=== PATIENT | female | born 1960 | race Caucasian/White ===

== ENCOUNTER 2023-11-16 09:52 | Observation (INO) ==
--- NOTE | 2023-10-10 10:20 | PAT Medication Instructions ---
Medication Instructions Date of Service October 10, 2023 Home Medications Medication Instructions Recorded walker #1 ea 09/25/23 alendronate 70 mg tablet (Fosamax) 70 mg PO WK aspirin 81 mg capsule 81 mg PO QAM atorvastatin 40 mg tablet 40 mg PO QAM calcium 500 mg tablet 500 mg PO QAM cholecalciferol (vitamin D3) 25 mcg (1,000 unit) tablet (Vitamin D3) 25 mcg PO QAM citalopram 20 mg tablet 20 mg PO QAM coenzyme Q10 10 mg capsule 10 mg PO QAM diclofenac sodium 50 mg tablet,delayed release 50 mg PO BID PRN diltiazem HCl 180 mg tablet,extended release 24 hr 180 mg PO QAM ezetimibe 10 mg tablet 10 mg PO QAM glipizide 5 mg tablet 5 mg PO QAM lorazepam 0.5 mg tablet 0.5 mg PO DAILY PRN metformin 500 mg tablet 1,000 mg PO BID omeprazole 20 mg tablet,delayed release 20 mg PO QAM pyridoxine (vitamin B6) 100 mg tablet (Vitamin B-6) 100 mg PO QAM Continue as directed lorazepam 0.5 mg tablet 0.5 mg PO DAILY PRN(if needed) ASK your surgeon for instructions diclofenac sodium 50 mg tablet,delayed release 50 mg PO BID PRN ASK your prescriber and surgeon aspirin 81 mg capsule 81 mg PO QAM STOP taking 2 weeks before surgery (or as soon as possible if surgery is within 2 weeks) coenzyme Q10 10 mg capsule 10 mg PO QAM DO NOT take the morning of surgery alendronate 70 mg tablet (Fosamax) 70 mg PO WK calcium 500 mg tablet 500 mg PO QAM cholecalciferol (vitamin D3) 25 mcg (1,000 unit) tablet (Vitamin D3) 25 mcg PO QAM glipizide 5 mg tablet 5 mg PO QAM metformin 500 mg tablet 1,000 mg PO BID pyridoxine (vitamin B6) 100 mg tablet (Vitamin B-6) 100 mg PO QAM Take morning of surgery With a small sip of water, OTHERWISE NOTHING TO EAT OR DRINK AFTER MIDNIGHT: atorvastatin 40 mg tablet 40 mg PO QAM citalopram 20 mg tablet 20 mg PO QAM diltiazem HCl 180 mg tablet,extended release 24 hr 180 mg PO QAM ezetimibe 10 mg tablet 10 mg PO QAM omeprazole 20 mg tablet,delayed release 20 mg PO QAM Take evening before surgery metformin 500 mg tablet 1,000 mg PO BID Other Notes If you have any questions please call us at [phone] or [phone] or [phone] or [phone]
--- NOTE | 2023-10-18 09:09 | Anesthesiology Consultation ---
Date of Service October 18, 2023 Assessment & Plan (1) Encounter for pre-operative examination: - Check BSG AM DOS - Infectious disease screening: Per assessment on 10/18/23: No known recent infectious disease contacts or current infectious disease symptoms. - Outpatient joint assessment: Pt currently scheduled for inpatient pathway. If surgeon requests review for outpatient joint pathway, patient is not recommended candidate for outpatient joint program from anesthesia standpoint based on available information. - Awaiting upcoming PCP office visit (Dr. Sarita Middleton/HAILY Hamilton, appt 11/11). Patient otherwise acceptable risk for surgery. Chart Review Chart Review: Patient seen in Pre Admission Testing Teaching & Discussion Pre-Anesthesia Teaching/Discussion Notes: Instructed NPO after midnight before surgery,except medications with 15 cc of water. Medication instructions provided according to the PAT guidelines. History Surgery Operation Date: 11/16/23 08:50 Proposed Procedures p Right Total Knee Arthroplasty - Kavin Shanks MD Height/Weight Height: 5 ft 2 in Weight: 68.1 kg Allergies Allergy/AdvReac Type Severity Reaction Status Date / Time grapefruit Allergy Intermediate Hives Verified 10/03/23 13:16 peach Allergy Intermediate Hives Verified 10/03/23 13:16 strawberry Allergy Intermediate Mouth Sores Verified 10/03/23 13:16 erythromycin base AdvReac Intermediate Upset Verified 10/03/23 13:16 Stomach/Pain lactase [From Dairy Aid] AdvReac Intermediate Upset Verified 10/03/23 13:16 stomach Sulfa (Sulfonamide AdvReac Intermediate Flu-like Verified 10/03/23 13:16 Antibiotics) symptoms ampicillin AdvReac Mild Hives Verified 10/03/23 13:16 acetaminophen [From Percocet] AdvReac Nausea Verified 10/18/23 09:50 oxycodone [From Percocet] AdvReac Nausea Verified 10/18/23 09:50 Medications Home Medications Medication Instructions Recorded Confirmed Last Taken walker #1 ea 09/25/23 10/03/23 Unknown alendronate 70 mg tablet (Fosamax) 70 mg PO WK 10/03/23 10/03/23 Unknown aspirin 81 mg capsule 81 mg PO QAM 10/03/23 10/03/23 Unknown atorvastatin 40 mg tablet 40 mg PO QAM 10/03/23 10/03/23 Unknown calcium 500 mg tablet 500 mg PO QAM 10/03/23 10/03/23 Unknown cholecalciferol (vitamin D3) 25 25 mcg PO QAM 10/03/23 10/03/23 Unknown mcg (1,000 unit) tablet (Vitamin D3) citalopram 20 mg tablet 20 mg PO QAM 10/03/23 10/03/23 Unknown coenzyme Q10 10 mg capsule 10 mg PO QAM 10/03/23 10/03/23 Unknown diclofenac sodium 50 mg 50 mg PO BID PRN Pain 10/03/23 10/03/23 Unknown tablet,delayed release diltiazem HCl 180 mg 180 mg PO QAM 10/03/23 10/03/23 Unknown tablet,extended release 24 hr ezetimibe 10 mg tablet 10 mg PO QAM 10/03/23 10/03/23 Unknown glipizide 5 mg tablet 5 mg PO QAM 10/03/23 10/03/23 Unknown lorazepam 0.5 mg tablet 0.5 mg PO DAILY PRN Anxiety 10/03/23 10/03/23 Unknown metformin 500 mg tablet 1,000 mg PO BID 10/03/23 10/03/23 Unknown omeprazole 20 mg tablet,delayed 20 mg PO QAM 10/03/23 10/03/23 Unknown release pyridoxine (vitamin B6) 100 mg 100 mg PO QAM 10/03/23 10/03/23 Unknown tablet (Vitamin B-6) Past Medical History Medical History Acid reflux Anxiety Arthritis History of atrial fibrillation Per review of [facility] records, patient had a. fib episode 2015 > cardioverted to sinus rhythm. Cardio recommended Pradaxa 1 month. Discussion of remaining on AC vs off. CHADS 0. Cardio felt okay to discontinue Pradaxa after one month post cardioversion but recommended adding ASA daily to regimen. Hypercholesterolemia Sleep apnea CPAP (compliant) Thyroid nodule Under surveillance Type 2 diabetes mellitus Exercise / Class Metabolic Activity II 4-5 Yardwork/Stairs/Walk up hill (one FS: no CP, no SOB) Past Surgical History Surgical History History of cardioversion [facility] Approximately 2004 Hx of appendectomy Hx of colonoscopy Hx of left knee surgery torn meniscus PONV (postoperative nausea and vomiting) Past Anesthesia History No Hx of Anesthesia Complications and No Family Hx of Anesthesia Complications History of PONV History of PONV (Nausea) and Hx of Motion Sickness (Situational) Social History Smoking Status: Never smoker Do You Dip or Chew Tobacco: No Hx Alcohol Use: Yes Alcohol type: wine and hard liquor alcohol intake frequency: holidays/special occasions only Hx Substance Use: No substance use type: does not use Review of Systems Patient denies chest pain, shortness of breath, dyspnea on exertion, fever, chills, cough, wheezing, palpitations. Physical Exam Vital Signs BP 120/71 P 79 TEMP 97.8 SP02 97%RA RESP 18 Physical Full cervical extension range of motion. Full TMJ range of motion. TMD 2.5 finger breaths (small chin) Mallampati Score III Dentition: missing molars, upper front bridge Lungs: clear throughout to auscultation Cardiac: regular rate and rhythm, no murmurs noted Spine: normal Carotid arteries: negative bruit Extremities: no LE edema Lab Results Anesthesia Preop Results Results Anesthesia Widget: WBC 6.45 K/ul (4.8-10.8) 10/18/23 Hgb 11.7 g/dl (12.0-16.0) L 10/18/23 Hct 34.4 % (37.0-47.0) L 10/18/23 Plt 401 K/uL (130-400) H 10/18/23 Na 137 mmol/L (136-145) 10/18/23 K 3.9 mmol/L (3.5-5.1) 10/18/23 Cl 101 mmol/L (98-107) 10/18/23 CO2 27 mmol/L (21-32) 10/18/23 BUN 12 mg/dl (6-23) 10/18/23 Creat 0.66 mg/dl (0.6-1.2) 10/18/23 Glucose Level 106 mg/dl (70-99(Fasting)) H 10/18/23 PT 10.5 Seconds (9.0-12.0) 10/18/23 PTT 28 Seconds (21-31) 10/18/23 INR 1.0 (0.9-1.1) 10/18/23 HA1c 7.1 % (4.5-5.6) H 10/18/23 Blood Type O Positive 10/18/23 Antibody Screen NEGATIVE 10/18/23 Testing Electrocardiogram Date: 10/18/23 NSR at 77bpm. Low voltage QRS. Chest X-Ray Date: 10/18/23 FINDINGS: No lines and tubes are seen. The cardiomediastinal silhouette is normal. The lungs are clear. No evidence of pleural effusion or pneumothorax. IMPRESSION: No acute chest disease.
--- NOTE | 2023-11-10 11:31 | History & Physical Report ---
Date of Service November 10, 2023 Assessment & Plan (1) Right knee DJD: 63-year-old female with with advanced bilateral knee arthritis. She has failed conservative treatment. She is ready to proceed with knee replacement. The right knee is bothering more than the left. Plan we have taken the operating room and do a right knee replacement for the right cementless procedure explained in depth and she understands. Informed consent was obtained. She only knows to hold her metformin the morning of surgery. Bring the CPAP machine to the hospital. Will use aspirin for DVT prophylaxis. (2) Left knee DJD: History of Present Illness Chief Complaint: . Bilateral knee pain and discomfort right side worse than the left. Primary Care Provider: NO PCP . Patient is 63-year-old female from [facility] who presents for treatment of her knees. With a long history of bilateral knee pain discomfort describes gotten worse over time. She did have her left knee scope back in 2008. She has been through extensive conservative treatment provided at [facility]. This is become less successful over time. Pains become more disabling. Her walking tolerance is just a couple blocks. She used to walk 3 miles a day. She now like to proceed with knee replacement. Once again, the right side is worse than the left. Allergies Allergy/AdvReac Type Severity Reaction Status Date / Time grapefruit Allergy Intermediate Hives Verified 10/03/23 13:16 peach Allergy Intermediate Hives Verified 10/03/23 13:16 strawberry Allergy Intermediate Mouth Sores Verified 10/03/23 13:16 erythromycin base AdvReac Intermediate Upset Verified 10/03/23 13:16 Stomach/Pain lactase [From Dairy Aid] AdvReac Intermediate Upset Verified 10/03/23 13:16 stomach Sulfa (Sulfonamide AdvReac Intermediate Flu-like Verified 10/03/23 13:16 Antibiotics) symptoms ampicillin AdvReac Mild Hives Verified 10/03/23 13:16 acetaminophen [From Percocet] AdvReac Nausea Verified 10/18/23 09:50 oxycodone [From Percocet] AdvReac Nausea Verified 10/18/23 09:50 Home Medications Medication Instructions Recorded Confirmed Type walker #1 ea 09/25/23 10/03/23 Rx alendronate 70 mg tablet (Fosamax) 70 mg PO WK 10/03/23 10/03/23 History aspirin 81 mg capsule 81 mg PO QAM 10/03/23 10/03/23 History atorvastatin 40 mg tablet 40 mg PO QAM 10/03/23 10/03/23 History calcium 500 mg tablet 500 mg PO QAM 10/03/23 10/03/23 History cholecalciferol (vitamin D3) 25 25 mcg PO QAM 10/03/23 10/03/23 History mcg (1,000 unit) tablet (Vitamin D3) citalopram 20 mg tablet 20 mg PO QAM 10/03/23 10/03/23 History coenzyme Q10 10 mg capsule 10 mg PO QAM 10/03/23 10/03/23 History diclofenac sodium 50 mg 50 mg PO BID PRN Pain 10/03/23 10/03/23 History tablet,delayed release diltiazem HCl 180 mg 180 mg PO QAM 10/03/23 10/03/23 History tablet,extended release 24 hr ezetimibe 10 mg tablet 10 mg PO QAM 10/03/23 10/03/23 History glipizide 5 mg tablet 5 mg PO QAM 10/03/23 10/03/23 History lorazepam 0.5 mg tablet 0.5 mg PO DAILY PRN Anxiety 10/03/23 10/03/23 History metformin 500 mg tablet 1,000 mg PO BID 10/03/23 10/03/23 History omeprazole 20 mg tablet,delayed 20 mg PO QAM 10/03/23 10/03/23 History release pyridoxine (vitamin B6) 100 mg 100 mg PO QAM 10/03/23 10/03/23 History tablet (Vitamin B-6) Past Med/Surg History Problem List (Updated 11/10/23 @ 11:30 by Kavin Shanks MD) Left knee DJD Encounter for pre-operative examination Right knee DJD Medical History Arthritis Thyroid nodule Under surveillance Anxiety History of atrial fibrillation Per review of [facility] records, patient had a. fib episode 2015 > cardioverted to sinus rhythm. Cardio recommended Pradaxa 1 month. Discussion of remaining on AC vs off. CHADS 0. Cardio felt okay to discontinue Pradaxa after one month post cardioversion but recommended adding ASA daily to regimen. 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 Physical Exam . Physical examination was a pleasant middle-age female. Looks to be in pretty good health. Examination of both knees reveal patient ambulates independently. She got varus alignment to both knees. Examination of the right knee reveals tenderness over the medial joint line. Small knee effusion. Range of motion 10-1 15. No instability. No pain with hip motion. Examination of the left knee reveals similar varus deformity. Well-healed portal sites. Small knee effusion. Range of motion 5-1 20. No instability. Constitutional WD/WN, vitals as above Neck trachea midline, no thyromegaly Respiratory normal respiratory effort, lungs clear to auscultation Cardiovascular RRR, no murmur, no edema Gastrointestinal (Abdomen) normal bowel sounds, soft, nontender, no hepatosplenomegaly Results & Data Results & Data Laboratory Results . Diagnostic Findings . X-rays of both knees show advanced bilateral knee DJD. She is got complete loss of the medial joint space. Subchondral sclerosis. Osteophytes primarily medially. The right knee is slightly worse than the left. PG Care Time/CCT Total # of Minutes Spent Total Time Spent with Patient: Total time spent is greater than 50% in coordination of care (as documented) at patient's floor/unit and/or counseling patient: Coding Level of Care Code None Diagnoses Right knee DJD M17.11 Left knee DJD M17.12
[~2023-11-16 09:52] MED LIST: BUPIVACAINE 0.5 % 5 MG/1 ML PF 10ML VIAL ONE; EPINEPHrine INJ 1 MG/ML AMP ONE; LR 500ML BOLUS, THEN 15ML/HR IV SCH; ROPIVACAINE 0.5% 5 MG/ML 30 ML VIAL ONE
[2023-11-16] MEDS: LR 500ML BOLUS, THEN 15ML/HR IV SCH (10:37)
[2023-11-16] MEDS: LR 60ML/HR IV SCH (10:37)
[2023-11-16] MEDS: ACETAMINOPHEN 500 MG TAB PO SCH ×2 (10:42→20:29)
[2023-11-16] MEDS: FAMOTIDINE 20 MG TAB PO SCH (10:42)
[2023-11-16] MEDS: METOCLOPRAMIDE HCL 10 MG TABLET PO SCH (10:42)
[2023-11-16] MEDS: CeleBREX 200 MG CAP PO SCH (10:42)
--- NOTE | 2023-11-16 11:18 | History & Physical Bridge Note ---
Date of Service November 16, 2023 History & Physical Bridge Note I have examined the patient, reviewed the History & Physical and in the interval since the performance of the History & Physical I have noted the following changes of clinical significance: no changes noted
[2023-11-16] MEDS ORDERED: PROPOFOL IV EMULSION 10 MG/ML 20 ML VIAL IV ONE (12:50)
[2023-11-16] MEDS ORDERED: MIDAZOLAM HCL 1 MG/ML 2ML VIAL ONE (12:50)
[2023-11-16] MEDS: ceFAZolin 2000MG 2,000 MG/15 ML SYR IV SCH (14:09)
[2023-11-16] MEDS: ORTHO JOINT ANESTHETIC ONE (14:38)
[2023-11-16] MEDS: TRANEXAMIC ACID 1,000 MG **IV Intra-op IV SCH (14:43)
[2023-11-16] MEDS: ROPIV 0.5% 246mg, Ketorolac 30mg, EPINEPHrine 0.5mg in NSS INFIL SCH (14:59)
--- NOTE | 2023-11-16 15:38 | Operative Report ---
PG Post Operative Report Pre & Post Diagnosis Operation Date: 11/16/23 12:00 Pre-Op Diagnosis: Right Knee Degenerative Joint Disease Post-Op Diagnosis: Right Knee Degenerative Joint Disease I identified the patient and participated in the time-out.: Yes Procedure Operation Date: 11/16/23 12:00 Actual Procedures p Right Total Knee Arthroplasty(Right) - Kavin Shanks MD Surgeon Kavin Shanks MD Wheel Truer NADINE Heck Estimated Blood Loss 50 Findings Consistent with Post-Op Diagnosis Operative findings reveal advanced right knee medial compartment DJD. She had extensive grade 4 [id number] disease and eburnation of the entire medial compartment. The rest knee was pretty well-preserved. Osteophytes medially. Slight flexion contracture. Fixed varus deformity. Moderate-sized joint effusion. Specimens Right knee sent for pathology. Anesthesia Type Spinal MAC Complications none Disposition Accompanied Patient To Recovery: No Indications Patient is a 63-year-old female is had a long history of a gradual progressive right knee pain discomfort. She been through extensive conservative treatments became less successful over time. X-rays show advanced right knee medial compartment arthritis. She elected proceed with surgical management. Description of Procedure Operative implants consist of: 1 Biomet Vanguard size 65 right posterior stabilized femoral component. 2. Biomet size 67 tibial tray. 3. 12 mm posterior stabilized polyethylene insert. 4. 31 x 8 all poly patella. The patient was taken the op room, identified, placed on the operating table in the supine position. All conductors were appropriately padded. IV antibiotic 5 by anesthesia team. A spinal anesthetic and adductor canal block had provided holding area. A Ackerman catheter was placed in sterile fashion. Right Tetrick was then placed. The right lower extremity was then prepped and draped in usual sterile fashion. The right leg was elevated and exsanguinated with use of an Esmarch and turn was placed at 300 mmHg. An anterior approach to the right knee was then performed to longitudinal incision centered over the patella. Sharp dissection was carried through subcutaneous tissue down the extensor mechanism. A medial parapatellar arthrotomy incision was made. Some subperiosteal dissection was carried out medially to the fat pad resection. The patella tendon. Lateral patellofemoral ligament was released. Patella subluxated laterally and the knee was flexed. The osteophytes taken off distal femur. The ACL and PCL were then released from distal femur the tibia subluxated anteriorly. The external treatment LYMErix then placed on the anterior face the tibia and adjusted 14 mm medially. Proximal tibial cut was made remove about a millimeter bone from the medial side. Some osteophytes taken off medial and posterior medially. Tibia sized to a size 67. Attention drawn the femur. The distal femur then with a sharp drill. Intramedullary canal was suction. A right six 5 degree valgus cutting guide was placed. The distal femoral cutting block was pinned in place. Distal femoral cut was made take an additional 3 mm of bone off distal femur. The femur was then sized to a size 65. The AP cutting block was pinned parallel to the epicondylar axis which was 4 degrees of external rotation. The anterior cut, anterior chamfer, posterior cut, posterior chamfer cuts were made. The box cutting guide was placed and just slight lateral box cut was made. The knee was flexed. The remnants of the medial and lateral menisci were excised. The osteophytes were taken off the posterior aspect the femur. Trial femoral component was placed. The tibial tray was pinned Yasmin external rotation and the drill and stem punch used to create defect in proximal tibia for the tibial tray. Knee was then trialed and the 12 mm insert fit most appropriately. Attention drawn the patella. The patella was cleaned of all soft tissue. Patella thickness measured 22 mm in thickness was cut down to 13. Was sized to a size 31 patella. The lug holes were drilled for 31 patella. The lateral osteophytes removed. Patella button was placed. Knee was taken through range of motion patella tracked nicely with no thumbs test. Attention drawn toward placing the permanent components. All trial components were removed. Bone plug was placed in the distal femur limit blood loss. A double batch Palacos G cement was mixed. Biomet Vanguard size 65 right posterior stabilized femoral component, size 67 tibial tray, a 12 mm posterior Byce polyethylene insert, and a 31 x 8 all poly patella then cemented in place. The knee was brought out into full extension till cement hardened. Final cement check was then performed. Pericapsular tissues were injected with total 100 cc of Ortho mix. Patient did receive 1 g of tranexamic acid. The tourniquet was then let down for final tourniquet time 48 minutes. Hemostasis assured with electrocautery. Extensor Meclomen closed with combination 1 PDS suture #1 Vicryl suture in a [id number] fashion for the extensor Meclomen checked found to be intact. Subcutaneous tissue was then closed with 2 Dexon suture in a buried interrupted fashion and the skin was closed skin renata. Leg was then cleaned and dried and sterile dressing with Xeroform, 4 x 4's, sterile cast padding, Nathan bandage were applied. Patient then transferred to the recovery room in stable condition. Patient tolerated procedure well and there were no complications. Sen Heck, my physician head start assistant teacher, was present for the entire procedure. His assistance was essential and required for appropriate patient positioning, prepping and draping, surgical exposure, performing the technical details of the operation, placement the implants, closure of the wound, and placement of the sterile bandage. I attest to the content of the Intraoperative Record and any orders documented therein. Any exceptions are noted below.
[2023-11-16] MEDS ORDERED: fentaNYL citrate PF 100 MCG/2 ML VIAL IV PRN (15:44)
[2023-11-16] MEDS ORDERED: NALOXONE HCL 0.4 MG/1 ML VIAL/CARP IV PRN ×2 (15:44→17:06)
[2023-11-16] MEDS ORDERED: PROMETHAZINE HCL 6.25 MG in SODIUM CHLORIDE 0.9% 50 ML IV PRN (15:44)
[2023-11-16] MEDS ORDERED: ATROPINE SULFATE 0.1 MG/ML 10ML SYR IV PRN (15:44)
[2023-11-16] MEDS ORDERED: FLUMAZENIL 0.1 MG/1 ML 10 ML VIAL IV PRN (15:44)
[2023-11-16] MEDS ORDERED: ePHEDrine sulfate 50 MG/ML AMP IV PRN (15:44)
--- NOTE | 2023-11-16 15:47 | XRay Report ---
TWO VIEWS RIGHT KNEE CLINICAL HISTORY: Postoperative examination. FINDINGS: AP and crosstable lateral portable views of the right knee are obtained. A right knee arthr oplasty is in near anatomic alignment. There has been undersurface remodeling of the patella. No acut e fracture is seen. There are expected postoperative changes around the knee including skin clips, so ft tissue edema, and subcutaneous gas. IMPRESSION: Expected postoperative changes status post right knee arthroplasty. No acute fracture is seen. ACT 112: Negative or not required by law. Electronically signed by: Junior Vidales M.D. 11/16/2023 3:46 PM
[2023-11-16] MEDS: ONDANSETRON INJ 2 MG/ML 2 ML VIAL IV PRN (15:50)
--- NOTE | 2023-11-16 16:28 | Anesthesiology Progress Note ---
Date of Service November 16, 2023 Anesthesia Post Procedure Vital Signs Vital Signs: Temp Pulse Pulse Resp BP Pulse Ox O2 Del Method 11/16/23 16:20 82 14 99/57 L 96 Room Air 11/16/23 16:10 81 23 128/62 96 Room Air 11/16/23 16:00 82 20 124/57 L 93 Room Air 11/16/23 15:50 85 14 126/63 94 Room Air 11/16/23 15:40 86 16 128/66 95 Room Air 11/16/23 15:34 36.5 C 99 H 18 118/58 L 97 Room Air 11/16/23 10:28 36.6 C 87 18 132/64 96 Room Air, CPAP Pain Intensity Right Knee: Pain Intensity: 0 Transfer of Care Handoff Completed per policy Notes Mental Status: alert / awake / arousable Patient Amnestic to Procedure: Yes Nausea / Vomiting: adequately controlled Pain: adequately controlled Airway Patency, RR, SpO2: stable & adequate BP & HR: stable & adequate Hydration State: stable & adequate Neuraxial Anesthesia: was administered and sensory block is resolving Anesthetic Complications: no major complications apparent
--- OUTSIDE RECORDS SUMMARY | 2023-11-16 16:57 | External Medical Summary | Summary of Care ---
Author Name Unknown Organization [facility] Address [address] [place] [address] Phone [phone] Care Team Providers Care Quality Control Engineering Technician Name Role Phone Sarita Middleton MD Primary Care Provider [phone] Encounter Details Date Type Department Care Team (Late st Contact Info) Description 11/14/2023 Orders Only PATIENT PORTAL DO NOT DELETE THIS DEPT USED BY [place] [id number] Allergies Active Allergy Reactions Criticality Noted Date Comments Ampicillin 04/15/1998 rash-yrs ago Tilactase Abdominal pain 11/20/2014 Erythromycin 05/31/1999 nausea Food (See Comments) 08/09/2002 strawberries, peaches and grapefruit Sulfa Antibiotics 03/15/2000 vomiting documented as of this encounter (statuses as of 11/14/2023) Medications Medication Sig Dispensed Refills Start Date End Date Status VITAMIN B-6 100 MG PO TABSIndications:Menop ause one a day 30 5 12/20/2004 Active CALCIUM 500 MG PO CAPS one cap by mouth daily 30 5 12/22/2005 Active aspirin 81 MG chewable tablet Take 1 Tab by mouth daily. 100 Tab 3 02/21/2016 Active Coenzyme Q10 10 MG CapsuleIndications:Dy slipidemia, goal LDL below 100 Take 1 Cap by mouth daily. 30 Cap 5 06/18/2017 Active OneTouch Ultra 2 w/Device KitIndications:Diabet es mellitus without complication (HCC) Use as directed to test blood sugar 1 times daily. May substitute based on insurance preference. 1 Kit 11/11/2019 Active Vitamin D 25 MCG (1000 UT) Oral TabletIndications:Vit bui D deficiency Take by mouth 1 Tablet in the morning. 30 Tablet 11 10/20/2021 Active LORazepam 0.5 MG Oral Tablet (Ativan)Indications:A nxiety TAKE ONE (1) TABLET (0.5 MG) BY MOUTH AT BEDTIME NEEDED FOR ANXIETY. 30 Tablet 01/17/2022 Active OneTouch Delica Plus [id number]: Diabetes mellitus without complication (HCC) USE TO TEST BLOOD SUGAR ONCE DAILY 100 Each 3 07/13/2022 Active Glucose Blood In Vitro StripIndications:Diab etes mellitus without complication (HCC) USE TO TEST BLOOD SUGAR ONCE DAILY 100 Strip 3 07/13/2022 Active Olopatadine HCl 0.1 % Ophthalmic Solution (Pataday)Indications: Allergy, sequela Instill 1 Drop into both eyes in the morning and 1 Drop before bedtime. 5 mL 12 10/20/2022 Active CPAP every night at bedtime. Active Omeprazole 40 MG Oral Capsule Delayed Release (PriLOSEC) Take 1 Capsule by mouth in the morning. 90 Capsule 3 04/02/2023 Active Atorvastatin Calcium 40 MG Oral Tablet (Lipitor)Indications: Dyslipidemia, goal LDL below 100 TAKE 1 TABLET EVERY MORNING 90 Tablet 3 09/22/2023 Active Ezetimibe 10 MG Oral Tablet (Zetia) TAKE 1 TABLET EVERY MORNING 90 Tablet 3 10/18/2023 Active Alendronate Sodium 70 MG Oral Tablet (Fosamax)Indications: Age-related osteoporosis without current pathological fracture Take 1 Tablet by mouth once a week. 12 Tablet 1 11/12/2023 Active Citalopram Hydrobromide 20 MG Oral Tablet (CeleXA) Take 1 Tablet by mouth in the morning. 90 Tablet 1 11/12/2023 Active Diclofenac Sodium 50 MG Oral Tablet Delayed Release (Voltaren)Indications :Primary osteoarthritis of right knee,Generalized osteoarthritis of multiple sites Take 1 Tablet by mouth every morning. 90 Tablet 1 11/12/2023 Active dilTIAZem HCl ER Coated Beads 180 MG Oral Capsule Extended Release 24 Hour (Cardizem CD) Take 1 Capsule by mouth in the morning. 90 Capsule 1 11/12/2023 Active glipiZIDE ER 5 MG Oral Tablet Extended Release 24 Hour (Glucotrol XL)Indications:Diabet es mellitus without complication (HCC) Take 1 Tablet by mouth in the morning. 90 Tablet 1 11/12/2023 Active metFORMIN HCl ER 500 MG Oral Tablet Extended Release 24 Hour (Glucophage XR) Take 2 Tablets by mouth in the morning and 2 Tablets before bedtime. 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 PROJECT: #[id number] ATHLETIC SHOE DESIGNER: Dannie De Jesus , PhD CONTACTS: Dannie Serna, Floor Plan Adjuster at [phone] SUMMARY: Over one million people have now undergone "next-generation" DNA sequencing. As a result, our understanding of the relationships between DNA and disease has improved substantially, and it is now possible to review an individual's DNA to identify specific disease risk factors. One such disease is arrhythmogenic right ventricular cardiomyopathy (ARVC), which is a degenerative heart disease that leads to sudden cardiac . Previous research has identified DNA variants in specific genes that are associated with ARVC, but in reality, the frequency and consequences of ARVC-associated variants in a general population are unknown. Research is needed to develop this knowledge and help guide clinical management of these patients. The [facility] Biobank offers an opportunity to address this challenge. [facility] [place], [place] contains whole exome sequencing data for over 50,000 patients, and these data are being clinically reviewed for evidence of disease-causing variants. This study is building a registry of MyCode participants who are found to be carrying ARVC-associated DNA variants to identify what percentage of these individuals actually have the disease, and determine the best plan for their treatment. Diagnosis changed due to Research Module. Go to Snapshot for study details. Thyroid nodule 03/07/2016 Overview: by [place] Atrial fibrillation with rapid ventricular respo nse 01/05/2015 Atrial fibrillation 01/05/2015 MIREYA (obstructive sleep apnea) 05/18/2014 Right knee DJD 02/09/2011 Pes anserinus tendinitis 02/09/2011 ADVANCE DIRECTIVE INFORMATION 01/31/2011 Overview: No, Advance Directive brochure offered , patient declined. Family history of cardiovascular disease 011 Joint pain, knee 10/01/2008 Headache Overview: ICD-10 update of inactive term Dyslipidemia, goal LDL below 100 Knee joint pain documented as of this encounter (statuses as of 11/14/2023) Resolved Problems Problem Noted Date Diagnosed Date Resolved Date Paroxysmal atrial fibrillation 03/21/2022 10/19/2022 Paroxysmal atrial fibrillation 03/21/2022 10/19/2022 Paroxysmal atrial fibrillation 03/21/2022 10/19/2022 Age-related osteoporosis wit hout current pathological fracture 05/11/2020 03/29/2021 Overview: High risk- treatment started Type 2 diabetes mellitus with hyperglycemia 09/06/2018 03/03/2019 Hyperglycemia 09/22/2017 03/02/2019 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: 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 Arrhythmogenic Right Ventricular Cardiomyopathy (ARVC).by [facility] Examination following surgery 10/12/2008 09/20/2017 Knee joint pain 01/20/2011 Sleep apnea 09/21/2019 documented as of this encounter (statuses as of 11/14/2023) Immunizations Name Administration Dates Next Due COVID-19 mRNA, LNP-s, No Pre serve, 2-Dose Series (Shooger) 08/20/2021,12/13/2020,11/22/2020 PPD 02/19/2013, 1,12/28/2008,02/06 Pneumococcal Polysaccharide PPV23 (Pneumovax) 09/06/2018 Seasonal Influenza Vac., MDV , IM, 0.5 mL (Fluzone) 11/21/2013,11/15/2012,10/27/2011,01/20,01/12/2010,12/28/2008 Seasonal Influenza, High Dos e, Trivalent, PF, IM (Fluzone HD) 11/12/2023 Seasonal Influenza, PF, 6 M & above, IM , (FluLaval or Fluzone) 01/08/2023,10/19/2021,12/13/2020,11/09,12/04/2018,11/30/2017,11/16/2016 Seasonal Influenza, Quadriva lent, No Preserve, IM 11/11/2015,11/23/2014 TDAP (age 10 and older)(Boostrix) 09/06/2018 TDAP, Age 7 and older, IM (Adacel) 08/04/2008 documented as of this encounter Social History Tobacco Use Types Packs/Day Years Used Date Smoking Tobacco: Never Smokeless Tobacco: Never Alcohol Use Standard Drinks/Week Comments No 0 (1 standard drink = 0.6 oz pur e alcohol) PHQ-2 Answer Date Recorded PHQ Adult Total Score 0 11/12/2023 Hunger Vital Sign Answer Date Recorded Within the past 12 months, y ou worried that your food would run out before you got the money to buy more. Never true 03/23/19 24 Within the past 12 months, t he food you bought just didn't last and you didn't have money to get more. Never true 03/23/2023 Childcare Answer Date Recorded Do you feel overwhelmed with taking care of a child, family member or friend? No 03/23/2023 Does your family need help f inding childcare? (Household - for ages 0-17 years) Not on file 03/23/2023 Clothing Answer Date Recorded Have you been unable to get clothing when it was really needed? No 03/23/2023 Is your family able to get c lothes or diapers when needed? (Household - for ages 0-17 years) Not on file 03/23/2023 Personal Safety Answer Date Recorded Do you feel unsafe or have concerns for your saf ety? No 03/23/2023 Do you have concerns for you r family's safety? (Household - for ages 0-17 years) Not on file 03/23/2023 Utilities Answer Date Recorded Do you have trouble paying y our heating, water, or electric bill? No 03/23/2023 Is your family able to pay t he heat, water, or electric bill? (Household - for ages 0-17 years) Not on file 03/23/2023 Does your family have access to good internet? (Household - for ages 0-17 years) Not on file 03/23/2023 Employment Status Answer Date Recorded Are you unemployed or without regular income? No 03/23/2023 Does the household have a re gular source of income? (Household - for ages 0-17 years) Not on file 03/23/2023 Social Connections Answer Date Recorded How often do you feel lonely or isolated from th ose around you? Never 03/23/2023 Financial Resource Strain Answer Date R ecorded Do you have any trouble payi ng for your medications, or do you think you might in the future? No 03/23/2023 Does your family have troubl e paying for medicine? (Household - for ages 0-17 years) Not on file 03/23/2023 Transportation Needs Answer Date Record ed READ ONLY Do you have troubl e getting a ride to medical visits or work? Never True 03/23/2023 Does your family have a hard time getting a ride to doctors visits? (Household - for ages 0-17 years) Not on file 03/23/2023 Has lack of transportation k ept you from medical appointments, meetings, work, or from getting things needed for daily living? Check all that apply. (Adult - for ages 18 years and over) Not on file 03/23/2023 Do you (or your family) have trouble finding or paying for a ride (transportation)? (Household - for ages 0-17 years) Not on file 03/23/2023 Housing Stability Answer Date Recorded Do you currently live in a s helter or have no steady place to sleep at night? No 03/23/2023 READ ONLY Do you think you a re at risk of becoming homeless? No 03/23/2023 Does your family worry about paying for your home or becoming homeless? (Household - for ages 0-17 years) Not on file 0 03/23/2023 Are you homeless or worried that you might be in the future? (Adult - for ages 18 years and over) Not on file Are you (or your family) wayne eless or worried that you might be in the future? (Household - for ages 0-17 years) Not on file Food Insecurity Answer Date Recorded Do you need food for this week? No 03/23/2023 Are you able to get enough f ood for your family? (Household - for ages 0-17 years) Not on file 03/23/2023 Does your family need food t his week? (Household - for ages 0-17 years) Not on file 03/23/2023 Do you always have enough fo od for your family? (Household - for ages 0-17 years) Not on file 03/23/2023 Sex and Gender Information Value Date Recorded Sex Assigned at Female 09/06/2018 9:13 AM EDT Gender Identity Female 09/06/2018 9:13 AM EDT Sexual Orientation Straight 09/06/2018 9: 13 AM EDT Job Start Date Occupation Industry Not on file Not on file Not on file documented as of this encounter Functional Status Functional Status Response Date of Assess ment Are you deaf or do you have serious difficulty h earing? No 01/05/2015 Are you blind or do you have serious difficulty seeing, even when wearing glasses? No 01/05/2015 Do you have serious difficul ty walking or climbing stairs? (5 years old or older) No 01/05/2015 Do you have difficulty dress ing or bathing? (5 years old or older) No 01/05/2015 Because of a physical, menta l, or emotional condition, do you have difficulty doing errands alone such as visiting a doctor s office or shopping? (15 years old or older) No 01/06/20 15 Cognitive Status Response Date of Assessm ent Because of a physical, menta l, or emotional condition, do you have serious difficulty concentrating, remembering, or making decisions? (5 years old or older) No 01/05/2015 documented as of this encounter Plan of Treatment Upcoming Encounters Date Type Department Care Team (Late st Contact Info) Description 04/18/2024 10:00 AM EST Office Visit [facility] [place] [address] [facility] [place] [phone] Sarita Middleton MD [address] [facility] [place] [address] 10/23/2024 10:00 AM EDT Imaging Radiology, [place] [address] [facility] [place] [id number] 10/30/2024 9:20 AM EDT [facility] [address] [facility] [phone] Connie Brown MD [address] [place] [address] [place] [address] 12/29/2024 4:00 PM EST Office Visit [facility] [place] [address] [facility] [place] [address] Sarita Middleton MD [address] [facility] [place] [address] Scheduled Procedures Name Priority Associated Diagnoses Date/Ti me COLONOSCOPY FLEXIBLE PROXIMA L DIAGNOSTIC Recall Colon cancer screening Internal hemorrhoids Health Maintenance Due Date Last Done Comments Cologuard 2003 Sigmoidoscopy 2003 Zoster Vaccines (1 of 2) 2008 Fecal Occult Blood Test 02/27/2017 02/27/19 17, 02/26/2015, 02/19/2014, Additional history exists Pneumococcal Vaccine: 65+ Years (2 of 2 - PCV) 09/07/2019 09/06/2018 HbA1c 09/21/2023 03/23/2023, 09/2022, 03/22/2022, Additional history exists COVID-19 Vaccine ( season) 2023 08/20/2021, 12/13/2020, 11/22/2020 Albumin/Creatinine Ratio 03/23/2024 03/23/2023, 09/2022 Diabetic Eye Exam 03/23/2024 03/23/2023, , 11/05/2020, Additional history exists Diabetic Foot Exam 03/23/2024 03/23/2023, 0 03/22/2022, 03/30/2021, Additional history exists GFR 10/17/2024 10/18/2023, 0210/2023, 10/20/2022, Additional history exists Mammogram 10/31/2024 11/01/2023, 10/13, 09/15/2021, Additional history exists Depression Screening 11/11/2024 11/12/2023 DXA Scan 11/20/2024 11/20/2022, 05/11/2020 Lipid Panel 03/23/2028 03/23/2023, 09/2022, 03/22/2022, Additional history exists DTap/Tdap Vaccines (3 - Td or Tdap) 09/06/2028 09/06/2018, 08/04/2008, 04/03/2003 Colonoscopy 08/21/2029 08/22/2019, 08/12, 02/19/2009 Colorectal Cancer Screening 08/21/2029 Hepatitis B Vaccine Completed 10/02/2003, 05/02/2003, 04/03/2003 VITAMIN D LEVEL ONCE IN A LIFETIME-USE SMARTSET# [id number] Completed 10/19/2021 Cervical Cancer Screening Discontinued HPV/Co-Test Discontinued 03/22/2022 Pap Smear Discontinued 03/22/2022, 02/13, 02/28/2016, Additional history exists Influenza Vaccine (FLU shot) Completed 11/12/2023, 01/08/2023, 10/19/2021, Additional history exists HPV (Gardasil) Vaccine Aged Out No lo nger eligible based on patient's age to complete this topic MENINGOCOCCAL (MENACTRA/MENVEO) Aged Out No longer eligible based on patient's age to complete this topic documented as of this encounter Medical Devices Not on filedocumented as of this encounter Advance Directives * Full Code (Latest Code Status on File) Date Activated Date Inactivated Comments 01/05/2015 5:00 PM 01/06/2015 10:29 PM This orde r reflects the patients wishes and were consensually agreed upon. Question Answer Comments Discussion of Advance Directives occurred with: Patient Does the patient have a Living Will? No Does the patient have Health Care Power of Attor mayo? No Care Teams Quality Control Engineering Technician Relationship Specialty Start Date End Date Sarita Middleton MD [address] [facility] [address] [place] [phone] PCP - General Family Medicine 04/17/14 documented as of this encounter
--- OUTSIDE RECORDS SUMMARY | 2023-11-16 16:57 | External Medical Summary | Summary of Care ---
Author Name Unknown Organization [facility] Address [address] [place] [address] Phone [phone] Care Team Providers Care International Controller Name Role Phone Sarita Middleton MD Primary Care Provider [phone] Reason for Visit * Reason Comments Routine Exam No concernsPatient b rought in the report from her diabetic eye exam Encounter Details Date Type Department Care Team (Latest Contact Info) Description 11/12/2023 8:00 AM EDT Office Visit [facility] [address] [place] [address] Sarita Middleton MD [address] [place] [address] Diabetes mellitus without complication (HCC)*; Paroxysmal atrial fibrillation (HCC); Dyslipidemia, goal LDL below 100; MIREYA (obstructive sleep apnea); Gastroesophageal reflux disease without esophagitis; Arthralgia of knee, unspecified laterality; Age-related osteoporosis without current pathological fracture; Adjustment disorder with depressed mood; Vitamin D deficiency; Primary osteoarthritis of right knee; Generalized osteoarthritis of multiple sites; Risk and functional assessment; Need for influenza vaccination Allergies Active Allergy Reactions Criticality Noted Date Comments Ampicillin 04/15/1998 rash-yrs ago Tilactase Abdominal pain 11/20/2014 Erythromycin 05/31/1999 nausea Food (See Comments) 08/09/2002 strawberries, peaches and grapefruit Sulfa Antibiotics 03/15/2000 vomiting documented as of this encounter (statuses as of 11/12/2023) Medications Medication Sig Dispensed Refills Start Date End Date Status VITAMIN B-6 100 MG PO TABSIndications:Me nopause one a day 30 5 5 Active CALCIUM 500 MG PO CAPS one cap by mouth daily 30 5 6 Active aspirin 81 MG chewable tablet Take 1 Tab by mouth daily. 100 Tab 3 7 Active Coenzyme Q10 10 MG CapsuleIndications :Dyslipidemia, goal LDL below 100 Take 1 Cap by mouth daily. 30 Cap 5 8 Active OneTouch Ultra 2 w/Device KitIndications:Marline betes mellitus without complication (HCC) Use as directed to test blood sugar 1 times daily. May substitute based on insurance preference. 1 Kit 0 Active Vitamin D 25 MCG (1000 UT) Oral TabletIndications: Vitamin D deficiency Take by mouth 1 Tablet in the morning. 30 Tablet 11 2 Active LORazepam 0.5 MG Oral Tablet (Ativan)Indication s:Anxiety TAKE ONE (1) TABLET (0.5 MG) BY MOUTH AT BEDTIME NEEDED FOR ANXIETY. 30 Tablet 2 Active OneTouch Delica Plus [id number] ns:Diabetes mellitus without complication (HCC) USE TO TEST BLOOD SUGAR ONCE DAILY 100 Each 3 3 Active Glucose Blood In Vitro StripIndications:D iabetes mellitus without complication (HCC) USE TO TEST BLOOD SUGAR ONCE DAILY 100 Strip 3 3 Active Olopatadine HCl 0.1 % Ophthalmic Solution (Pataday)Indicatio ns:Allergy, sequela Instill 1 Drop into both eyes in the morning and 1 Drop before bedtime. 5 mL 12 3 Active CPAP every night at bedtime. Active Omeprazole 40 MG Oral Capsule Delayed Release (PriLOSEC) Take 1 Capsule by mouth in the morning. 90 Capsule 3 4 Active Atorvastatin Calcium 40 MG Oral Tablet (Lipitor)Indicatio ns:Dyslipidemia, goal LDL below 100 TAKE 1 TABLET EVERY MORNING 90 Tablet 3 4 Active Ezetimibe 10 MG Oral Tablet (Zetia) TAKE 1 TABLET EVERY MORNING 90 Tablet 3 4 Active Alendronate Sodium 70 MG Oral Tablet (Fosamax)Indicatio ns:Age-related osteoporosis without current pathological fracture Take 1 Tablet by mouth once a week. 12 Tablet 1 4 Active Citalopram Hydrobromide 20 MG Oral Tablet (CeleXA) Take 1 Tablet by mouth in the morning. 90 Tablet 1 4 Active Diclofenac Sodium 50 MG Oral Tablet Delayed Release (Voltaren)Indicati ons:Primary osteoarthritis of right knee,Generalized osteoarthritis of multiple sites Take 1 Tablet by mouth every morning. 90 Tablet 1 4 Active dilTIAZem HCl ER Coated Beads 180 MG Oral Capsule Extended Release 24 Hour (Cardizem CD) Take 1 Capsule by mouth in the morning. 90 Capsule 1 4 Active glipiZIDE ER 5 MG Oral Tablet Extended Release 24 Hour (Glucotrol XL)Indications:Marline betes mellitus without complication (HCC) Take 1 Tablet by mouth in the morning. 90 Tablet 1 4 Active metFORMIN HCl ER 500 MG Oral Tablet Extended Release 24 Hour (Glucophage XR) Take 2 Tablets by mouth in the morning and 2 Tablets before bedtime. 360 Tablet 1 4 Active Alendronate Sodium 70 MG Oral Tablet (Fosamax)Indicatio ns:Age-related osteoporosis without current pathological fracture Take 1 Tablet by mouth once a week. 12 Tablet 1 4 11/12/19 24 Discontinued(Re fill) Citalopram Hydrobromide 20 MG Oral Tablet (CeleXA) Take 1 Tablet by mouth in the morning. 90 Tablet 1 4 11/12/19 24 Discontinued(Re fill) dilTIAZem HCl ER Coated Beads 180 MG Oral Capsule Extended Release 24 Hour (Cardizem CD) Take 1 Capsule by mouth in the morning. 90 Capsule 1 4 11/12/19 24 Discontinued(Re fill) Diclofenac Sodium 50 MG Oral Tablet Delayed Release (Voltaren)Indicati ons:Primary osteoarthritis of right knee,Generalized osteoarthritis of multiple sites Take 1 Tablet by mouth every morning. 90 Tablet 1 4 11/12/19 24 Discontinued(Re fill) glipiZIDE ER 5 MG Oral Tablet Extended Release 24 Hour (Glucotrol XL)Indications:Marline betes mellitus without complication (HCC) Take 1 Tablet by mouth in the morning. 90 Tablet 1 4 11/12/19 24 Discontinued(Re fill) metFORMIN HCl ER 500 MG Oral Tablet Extended Release 24 Hour (Glucophage XR) 2 tabs by mouth twice a day. 360 Tablet 1 4 11/12/19 24 Discontinued(Re fill) oxyCODONE-Acetamin ophen 5-325 MG Oral Tablet (Percocet) Take 1 Tablet by mouth every 4 hours as needed for Pain, Severe. 6 Tablet 4 11/12/19 24 Discontinued(Me dication List Clean Up) oxyCODONE-Acetamin ophen 5-325 MG Oral Tablet (Percocet) Take 1 Tablet by mouth every 4 hours as needed for Pain, Severe. 12 Tablet 4 11/11/19 24 Discontinued(Me dication List Clean Up) Ondansetron 4 MG Oral Tablet Disintegrating (Zofran) Place 1 Tablet on tongue every 8 hours as needed for Nausea. dissolve on tongue. 2 Tablet 4 11/11/19 24 Discontinued(Me dication List Clean Up) Ondansetron 4 MG Oral Tablet Disintegrating (Zofran) Place 1 Tablet on tongue every 8 hours as needed for Nausea. dissolve on tongue. 20 Tablet 4 11/11/19 24 Discontinued(Me dication List Clean Up) Alendronate Sodium 70 MG Oral Tablet (Fosamax)Indicatio ns:Age-related osteoporosis without current pathological fracture Take 1 Tablet by mouth once a week. 12 Tablet 1 4 11/12/19 24 Discontinued Citalopram Hydrobromide 20 MG Oral Tablet (CeleXA) Take 1 Tablet by mouth in the morning. 90 Tablet 1 4 11/12/19 24 Discontinued Diclofenac Sodium 50 MG Oral Tablet Delayed Release (Voltaren)Indicati ons:Primary osteoarthritis of right knee,Generalized osteoarthritis of multiple sites Take 1 Tablet by mouth every morning. 90 Tablet 1 4 11/12/19 24 Discontinued dilTIAZem HCl ER Coated Beads 180 MG Oral Capsule Extended Release 24 Hour (Cardizem CD) Take 1 Capsule by mouth in the morning. 90 Capsule 1 4 11/12/19 24 Discontinued glipiZIDE ER 5 MG Oral Tablet Extended Release 24 Hour (Glucotrol XL)Indications:Marline betes mellitus without complication (HCC) Take 1 Tablet by mouth in the morning. 90 Tablet 1 4 11/12/19 24 Discontinued metFORMIN HCl ER 500 MG Oral Tablet Extended Release 24 Hour (Glucophage XR) Take 2 Tablets by mouth in the morning and 2 Tablets before bedtime. 360 Tablet 1 4 11/12/19 24 Discontinued documented as of this encounter (statuses as of 11/12/2023) Active Problems Problem Noted Date Diagnosed Date [...] clinical research program 09/03/2017 Overview: [facility] Research Study*[id number]. PROJECT: #[id number] INSULATION SPRAYER: Dannie De Jesus , PhD CONTACTS: Dannie Serna, Mini Lab Operator at [phone] SUMMARY: Over one million people have now [...] guide clinical management of these patients. [facility] offers an opportunity to address this challenge. [facility] contains whole exome sequencing data for over [...] as of this encounter (statuses as of 11/12/2023) Resolved Problems Problem Noted Date Diagnosed Date [...] risk for Arrhythmogenic Right Ventricular Cardiomyopathy (ARVC).by [facility] Examination following surgery 10/12/2008 09/20/2017 Knee joint pain 01/20/2011 Sleep apnea 09/21/2019 documented as of this encounter (statuses as of 11/12/2023) Immunizations Name Administration Dates Next Due COVID-19 mRNA, LNP-s, No Pre serve, 2-Dose Series (Wattvision) 08/20/2021,12/13/2020,11/22/2020 PPD 02/19/2013, 1,12/28/2008,02/06 Pneumococcal Polysaccharide PPV23 (Pneumovax) 09/06/2018 Seasonal Influenza, High Dos e, Trivalent, PF, IM (Fluzone HD) 11/12/2023 Seasonal Influenza, PF, 6 M & above, IM , (FluLaval or Fluzone) 01/08/2023,10/19/2021,12/13/2020,11/09,12/04/2018,11/30/2017,11/16/2016 Seasonal Influenza, Quadriva lent, No Preserve, IM 11/11/2015,11/23/2014 Seasonal Influenza, Trivalen t, (IIV3), with Preserv, (Fluzone) 11/21/2013,11/15/2012,10/27/2011,01/20,01/12/2010,12/28/2008 TDAP (age 10 and older)(Boostrix) 09/06/2018 TDAP, Age 7 and older, IM (Adacel) 08/04/2008 documented as of this encounter Social History Tobacco Use Types Packs/Day Years Used Date Smoking Tobacco: Never Smokeless Tobacco: Never Alcohol Use Standard Drinks/Week Comments No 0 (1 standard drink = 0.6 oz pur e alcohol) PHQ-2 Answer Date Recorded PHQ Adult Total Score 0 10/20/2022 Hunger Vital Sign Answer Date Recorded Within [...] on file documented as of this encounter Last Filed Vital Signs Vital Sign Reading Time Taken Comments Blood Pressure 126/74 11/12/2023 8:11 AM EDT Pulse 88 11/12/2023 8:11 AM EDT Temperature 36.9 C (98.4 F) 11/12/2023 8:11 AM ED T Respiratory Rate - - Oxygen Saturation 98% 11/12/2023 8:11 AM EDT Inhaled Oxygen Concentration - - Weight 66.5 kg (146 lb 8 oz) 11/12/2023 8:11 AM EDT Height 157.5 cm (5' 2.01") 11/12/2023 8:11 AM ED T Body Mass Index 26.79 11/12/2023 8:11 AM EDT documented in this encounter Functional Status Functional Status Response [...] No 01/05/2015 documented as of this encounter Patient Instructions * Patient Instructions* Aleja Israel LPN - 11/12/2023 8:10 AM EDT Patient Instructions - Fall Prevention (This education is for all patients over 65 regardless of symptoms) Remember to take your current medications as prescribed. In order to prevent falls, you are encouraged to: Exercise Utilize assistive/adaptive devices Avoid multifocal lenses when walking Avoid hazards in home Maintain a regular toileting schedule Any questions please contact our office. Preventing Falls in the Home (This education is for all patients over 65 regardless of symptoms) As you get older, falls are more likely. Thats because your reaction time slows. Your muscles and joints may also get stiffer, making them less flexible. Illness, medications, and vision changes can also affect your balance. A fall could leave you unable to live on your own. To make your home safer, follow these tips: Floors Put nonskid pads under area rugs Remove throw rugs Replace worn floor coverings Tack carpets firmly to each step on carpeted stairs. Put nonskid strips on the edges of uncarpeted stairs Keep floors and stairs free of clutter and cords Arrange furniture so there are clear pathways Clean up any spills right away Bathrooms Install grab bars in the tub or shower Apply nonskid strips or put a nonskid rubber mat in the tub or shower Sit on a bath chair to bathe Use bathmats with nonskid backing Lighting Keep a flashlight in each room Put a nightlight along the pathway between the bedroom and the bathroom Alex Patient Education Copyright 2009 - 2010 Alex except where otherwise noted Preventing Falls: Exercises to Improve Balance, Flexibility, Strength, and Staying Power (This education is for all patients over 65 regardless of symptoms) Certain types of exercises may help make you less likely to fall. Try the ones below. Or do other exercises that your healthcare provider suggests. Depending on your health, you may need to start slowly. Dont let that stop you. Even small amounts of exercise can help you. Be sure to talk to yourhealthcare provider before starting any exercise program. Improve Balance Many types of exercise can help improve balance. Keaton chi and yoga are good examples. Heres another one to try. You can do it anytime and almost anywhere. Stand next to a counter or solid support. Push yourself up onto your tiptoes. Hold for 5 seconds. If you start to lose your balance, hold on to the counter. Rest and repeat 5 times. Work up to holding for 20 to 30 seconds, if you can. Increase Flexibility Being more flexible makes it easier for you to move around safely. Try exercises like the seated hamstring stretch. Sit in a chair and put one foot on a stool. Straighten your leg and reach with both hands down either side of your leg. Reach as far down your leg as you can. Hold for about 20 seconds. Go back to the starting position. Then repeat 5 times. Switch legs. Build Strength Resistance exercises help build strength. You can do them without equipment. Or you can use weights, elastic bands, or special machines. One such exercise is called the biceps curl. You can hold a 1 pound weight or even a can of soup. Do this exercise at least 3 times a week. Strive for everyday. Sit up straight in a chair. Keep your elbow close to your body and your wrist straight. Bend your arm, moving your hand up to your shoulder. Then slowly lower your arm. Repeat 5 times. Switch to the other arm. Build Your Staying Power Aerobic exercises make your heart and lungs stronger so you can keep moving longer. Walking and swimming are two of the best types of exercises you can do. Using a stationary bike is great, too. Find an aerobic exercise that you enjoy. Start slowly and build up. Even 5 minutes is helpful. Aimfor a goal of 30 minutes, at least 3 times a week. You dont have to do 30 minutes in one session. Break it up and walk a little throughout the day. More Helpful Tips Start easy. Slowly work up to doing more. Talk with your healthcare provider about the best exercises for you. Call senior centers or health clubs about exercise programs. If needed, have a family member watch you walk every so often to check your stability. Exercise with a friend. Choose an activity you both enjoy. Try exercises that you can do anytime, anywhere. Here are two examples. Have someone with you when you first try these: Practice walking by placing one foot right in front of the other. Stand up and sit down 10 times. Repeat this throughout the day. Your Survival Patient Education Copyright 2008 Your Survival except where otherwise noted. Preventing Falls: Moving Safely Using a Cane or Walker (This education is for all patients over 65 regardless of symptoms) Keep the cane away from your feet so you dont trip. A walking aid, such as a cane or walker, can help you stay more independent and avoid falls. Remember to keep your walking aid within easy reach when youre in a chair or in bed. And learn how to use it safely so you dont injure yourself. Using a Cane If you have a stronger side, hold the cane on that side. Get your balance. Move the cane and your weaker leg forward. Support your weight on both the cane and your weaker side. Step with your stronger leg. Start again from step 1. If youre using a folding walker, be sure you know how to lock it open. Check that its locked open before each use. Using a Walker Roll the walker (or lift it, if youre using one without wheels) forward about 12 inches. Step forward with your weaker leg first. Use the walker to help keep your balance. Bring your other foot forward to the center of the walker. Start again from step 1. Helpful Tips Check with your healthcare provider about the right walking aid to use. Ask about a walker with a seat attached. Check the tips of your cane or walker to make sure they have nonskid covers. Move slowly from room to room. Dont elliott. Sit down to get dressed. Use a ghulam pack or backpack to keep your hands free. Get help for jobs that mean climbing, even on a stepstool. Your Survival Patient Education Copyright 2008 Your Survival except where otherwise noted. Urinary Incontinence Plan of Care Documentation: (This education is for all patients over 65 regardless of symptoms) Current medications reconciled. Patient encouraged to: Practice kegal exercises Provide education materials Use the restroom every 2 hours throughout the day Limit caffeine, alcohol, spicy foods and acidic foods Keep a bladder diary Limit fluid intake 3-4 hours before bed Lose weight Prevent constipation Take fluid pills at a time when you can get to the bathroom quickly Control sugar better if diabetic Limit fluid intake to 60 oz. per day Wear support stockings (TEDs)if you have edema Aleja Israel LPN 11/12/2023 Kegel Exercises Kegel exercises dont require special clothing or equipment. Theyre easy to learn and simple to do. And if you do them right, no one can tell youre doing them, so they can be done almost anywhere. Your doctor, nurse, or physical therapist can answer any questions you have and help you get started. A Weak Pelvic Floor The pelvic floor muscles may weaken due to aging, and vaginal childbirth, injury, surgery, chronic cough, or lack of exercise. If the pelvic floor is weak, your bladder and other pelvic organs may sag out of place. The urethra may also open too easily and allow urine to leak out. Kegel exercises can help you strengthen your pelvic floor muscles so they can better support the pelvic organs and control urine flow. How Kegel Exercises Are Done Try each of the Kegel exercises described below. When youre doing them, try not to move your leg, buttock, or stomach muscles. While youre urinating, try to stop the flow of urine. Start and stop it as often as you can. Contract as if you were stopping your urine stream, but do it when youre not urinating. Tighten your rectum as if trying not to pass gas. Contract your anus, but dont move your buttocks. Helpful Hints Do your Kegels as often as you can. The more you do them, the faster youll feel the results. Pick an activity you do often as a reminder. For instance, do your Kegels every time you sit down. Tighten your pelvic floor before you sneeze, get up from a chair, cough, laugh, or lift. This protects your pelvic floor from injury and can help prevent urine leakage. Try to hold each Kegel for a slow count to five. You probably wont be able to hold them for thatlong at first, but keep practicing. It will get easier as your pelvic floor gets stronger. Eventually, special weights that you place in your vagina may be recommended to help make your Kegels even more effective. Alex Patient Education Copyright 2008 - 2010 Alex except where otherwise noted. Here are some helpful tips for your urinary incontinence: (This education is for all patients over 65 regardless of symptoms) Practice Kegel exercises Use the restroom every 2 hours throughout the day Limit caffeine, alcohol, spicy foods, and acidic foods Keep a bladder diary Limit fluid intake 3-4 hours before bed Lose weight Prevent constipation Take fluid pills at a time when can get to the bathroom quickly Control sugar better if diabetic Limit fluid intake to 60 oz. per day Any questions, please feel free to contact our office. documented in this encounter Progress Notes * Sarita Middleton MD - 11/11/2023 7:54 AM EDT Bridgette Caraballo is a 63 year old female who present for a routine exam HPI: Nursing Notes: Aleja Israel LPN 11/12/23 0813 Signed Chief Complaint Patient presents with Routine Exam No concerns Patient brought in the report from her diabetic eye exam Agrees to Flu shot if it doesn't interfere with her knee replacement on Wednesday 11/15 As above blood pressure stable Wt Readings from Last 3 Encounters: 11/12/23 66.5 kg (146 lb 8 oz) 11/01/23 67.1 kg (148 lb) 05/18/23 69.9 kg (154 lb 3.2 oz) Cutting back on soda and snacks For R TKR and with Dr Shanks on 11/15 To [facility] but her orthopedic doctor left and she decided to pursue someone else and [facility] 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 100 Tab 3 Coenzyme Q10 10 MG Capsule Take 1 Cap by mouth daily. 30 Cap 5 OneTouch Ultra 2 w/Device Kit Use as directed to test blood sugar 1 times daily. May substitute based on insurance preference. 1 Kit 0 Vitamin D 25 MCG (1000 UT) Oral Tablet Take by mouth 1 Tablet in the morning. 30 Tablet 11 LORazepam 0.5 MG Oral Tablet (Ativan) TAKE ONE (1) TABLET (0.5 MG) BY MOUTH AT BEDTIME NEEDED FOR ANXIETY. 30 Tablet 0 OneTouch Delica Plus [id number] USE TO TEST BLOOD SUGAR ONCE DAILY 100 Each 3 Glucose Blood In Vitro Strip USE TO TEST BLOOD SUGAR ONCE DAILY 100 Strip 3 Olopatadine HCl 0.1 % Ophthalmic Solution (Pataday) Instill 1 Drop into both eyes in the morning and 1 Drop before bedtime. 5 mL 12 CPAP every night at bedtime. Alendronate Sodium 70 MG Oral Tablet (Fosamax) Take 1 Tablet by mouth once a week. 12 Tablet 1 Citalopram Hydrobromide 20 MG Oral Tablet (CeleXA) Take 1 Tablet by mouth in the morning. 90 Tablet1 dilTIAZem HCl ER Coated Beads 180 MG Oral Capsule Extended Release 24 Hour (Cardizem CD) Take 1 Capsule by mouth in the morning. 90 Capsule 1 Diclofenac Sodium 50 MG Oral Tablet Delayed Release (Voltaren) Take 1 Tablet by mouth every morning. 90 Tablet 1 glipiZIDE ER 5 MG Oral Tablet Extended Release 24 Hour (Glucotrol XL) Take 1 Tablet by mouth in themorning. 90 Tablet 1 metFORMIN HCl ER 500 MG Oral Tablet Extended Release 24 Hour (Glucophage XR) 2 tabs by mouth twice a day. 360 Tablet 1 Omeprazole 40 MG Oral Capsule Delayed Release (PriLOSEC) Take 1 Capsule by mouth in the morning. 90Capsule 3 Atorvastatin Calcium 40 MG Oral Tablet (Lipitor) TAKE 1 TABLET EVERY MORNING 90 Tablet 3 Ezetimibe 10 MG Oral Tablet (Zetia) TAKE 1 TABLET EVERY MORNING 90 Tablet 3 No current facility-administered medications for this visit. 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 Well-defined wider than tall with punctate echogenic foci. This measures approximately 13 mm x 7 mm x 8 mm. Previously reported on 10/24/2022 to measure 13 mm x 7.5 mm x 9 mm. By ultrasound characteristics this is felt TR 4. TI-RADS a guidelines would suggest follow-u pUSsurveillance within a 12 mo Type 2 diabetes mellitus with hyperglycemia (HCC) 09/06/2018 Past Surgical History: Procedure Laterality Date COLONOSCOPY 02/19/2009 divertic COLONOSCOPY 08/22/2019 Diverticulosis in the sigmoid colon. Repeat 10 years COLONOSCOPY, DIAGNOSTIC (RECTUM) 08/22/2019 COLONOSCOPY FLEXIBLE PROXIMAL DIAGNOSTIC performed by Nicole Osman MD at ENDOSCOPY [facility] DEXA SCAN/BONE MINERAL AXIAL 11/28/2022 1. The present treatment with Fosamax/Alendronate has significantly increased bone mineral density in this patient and should be continued. 2. A repeat study should be considered in 2 years, while ontherapy ECHO (2-D COMPLETE) 12/2014 EF 55%, mild MR, small PFO EGD, FLEXIBLE, W/BIOPSY 08/[address] Hemanth Guerra in [place] HE[facility] ELECTROCONVERSION, EXTERNAL N/A 01/06/2015 DC [facility] performed by oMy Abdalla MD at [facility] [place] ARTHROSCOPY/MENISCECTOMY 10/02/2008 ARTHROSCOPY KNEE MEDIAL OR LATERAL MENISCECTOMY performed by DEISI STILL at [facility] LIGATE/CUT OVIDUCT(S) 1980 MRI KNEE WO CONTRAST 09/14/2008 vertical tear of left medial meniscus SLEEP STUDY, W/O CPAP 02/2011 Review of patient's allergies indicates: Allergen Reactions Ampicillin rash-yrs ago Dairy Aid [Tilactase] Abdominal pain Erythromycin nausea Food (See Comments) strawberries, peaches and grapefruit Sulfa Antibiotics vomiting Social History Tobacco Use Smoking status: Never Smokeless tobacco: Never Substance Use Topics Alcohol use: No Vaping/E-Cigarette Use Vaping/E-Cigarette Use Never User Vaping/E-Cigarette Substances Vaping/E-Cigarette Devices Family History Problem Relation Name Age of Onset Other (ALZHEIMER'S D) Mother DX'D AGE 67 Alcohol and Other Disorders Associated Father Stroke Father 58 Dementia Sister Catrina at 67 Stroke Brother Bala 2 strokes age 61 Other (a fib) Brother Bala mat cousin age 64 Heart Disorder Aunt (Unspecified) Mat aunt of blood clot age 34 , was on bcp Heart Disorder Aunt (Unspecified) mat aunt age 54 of heart transplant Heart Disorder Aunt (Unspecified) mat aunt 65 of heart problems PE: WD WN in No apparent distress VS BP 126/74 (BP Site: Right Arm, BP Position: Sitting, BP Cuff Size: Regular) | Pulse 88 | Temp 36.9 C (98.4 F) (Tympanic) | Ht 1.575 m (5' 2.01") | Wt 66.5 kg (146 lb 8 oz) | LMP 08/26/2010 | SpO2 98% | BMI 26.79 kg/m | BSA 1.71 m LMP 08/26/2010 HEENT: NC/AT EOMI PERRLA+glasses NOSE: no discharge MUCOUS MBS: no lesions and moist DENTITION: good Neck: supple and no adenopathy Thyroid: symmetrically enlarged non tender Lungs: Lungs clear to auscultation Heart: regular rate and rhythm Abdomen: normal Skin: no rash and no bruising EXT: no edema +DJD changes of knees ASSESSMENT/PLAN: Diabetes mellitus without complication (HCC) (Primary) - HEMOGLOBIN A1C; Future; Expected date: 11/11/2023 - LIPID PANEL WITH DIRECT LDL IF TG IS HIGH; Future; Expected date: 11/11/2023 Hemoglobin AIC Results: Lab Results Component Value Date/Time HEMOGLOBIN A1C - [facility] 6.7 (H) 03/23/2023 08:56 AM HEMOGLOBIN A1C - [facility] 7.2 (H) 10/20/2022 08:31 AM HEMOGLOBIN A1C - [facility] 6.8 (H) 03/22/2022 09:39 AM HEMOGLOBIN A1C - [facility] 7.7 (H) 11/10/2019 08:45 AM HEMOGLOBIN A1C - [facility] 7.1 (H) 06/27/2019 02:07 PM HEMOGLOBIN A1C - [facility] 7.6 (H) 03/03/2019 08:54 AM Paroxysmal atrial fibrillation (HCC) On diltiazem Dyslipidemia, goal LDL below 100 - HEMOGLOBIN A1C; Future; Expected date: 11/11/2023 - LIPID PANEL WITH DIRECT LDL IF TG IS HIGH; Future; Expected date: 11/11/2023 On statin and Zetia MIREYA (obstructive sleep apnea) On CPAP Date & Time 10/30/2024 9:20 AM Provider Connie Brown MD Department Sleep Disorders Medicine [facility] Gastroesophageal reflux disease without esophagitis On PPI Arthralgia of knee, unspecified laterality Following with Dr Shanks Age-related osteoporosis without current pathological fracture On alendronate Check Vit D level Adjustment disorder with depressed mood On citalopram -congratulated on her weight loss For R TKR with Dr Shanks 11/16/23 at [facility] Offer immunizations=flu shot today Follow-up: Return has 04/18/24 appt and make one for a yr and prn. | Check-out note: 04/18/2024 Sarita Middleton MD documented in this encounter Nursing Notes * Aleja sIrael LPN - 11/12/2023 8:43 AM EDT Pre-Administration Time Out Procedure Performed: Yes Patient Identified (Ask Name/Date of ): Yes Does the patient have a fever greater than 101 degrees today? No Patient allergic to latex? No Has the patient ever fainted after receiving an injection? No VFC Stock: No Immunization(s) verified: Yes, Immunization Name: Flu, VIS Sheet(s) given: Yes Verified Side and Site: Yes Verified Shot(s) with Parent(s)/Patient: Yes * Aleja Israel LPN - 11/12/2023 8:03 AM EDT Chief Complaint Patient presents with Routine Exam No concerns Patient brought in the report from her diabetic eye exam Agrees to Flu shot if it doesn't interfere with her knee replacement on Wednesday 11/15 documented in this encounter Plan of Treatment Upcoming Encounters Date Type Department Care Team (Late st Contact Info) Description 04/18/2024 10:00 AM EST Office Visit [facility], [place] [address] [address] Sarita Middleton MD [address] [facility] [place] [address] 10/23/2024 10:00 AM EDT Imaging Radiology, [place] [address] [place] [address] 10/30/2024 9:20 AM EDT Office Visit Sleep Disorders Medicine [place] [address] [place] [address] Connie Brown MD [address] [place] [address] [place] [address] 12/29/2024 4:00 PM EST Office Visit [facility], [place] [address] [place] [address] Sarita Middleton MD [address] [place] [address] Scheduled Orders Name Type Priority Associated Diagnoses Orde r Schedule HEMOGLOBIN A1C Lab Routine Dyslipidemia, goal LDL below 100 Diabetes mellitus without complication (HCC) Expected: 11/11/2023 (Approximate), Expires: 11/10/2024 LIPID PANEL WITH DIRECT LDL IF TG IS HIGH Lab Routine Dyslipidemia, goal LDL below 100 Diabetes mellitus without complication (HCC) Expected: 11/11/2023, Expires: 11/10/2024 25-HYDROXY VITAMIN D Lab Routine Vitamin D deficiency Expected: 11/12/2023 (Approximate), Expires: 11/10/2024 Scheduled Procedures Name Priority Associated Diagnoses Date/Ti me COLONOSCOPY FLEXIBLE PROXIMA L DIAGNOSTIC Recall Colon cancer screening Internal hemorrhoids Health Maintenance Due Date Last Done Comments Cologuard 2003 Sigmoidoscopy 2003 Zoster Vaccines (1 of 2) 2008 Fecal Occult Blood Test 02/27/2017 02/27/19 17, 02/26/2015, 02/19/2014, Additional history exists Pneumococcal Vaccine: 65+ Years (2 of 2 - PCV) 09/07/2019 09/06/2018 HbA1c 09/21/2023 03/23/2023, 090 09/2022, 03/22/2022, Additional history exists COVID-19 Vaccine ( season) 2023 08/20/2021, 12/13/2020, 11/22/2020 Albumin/Creatinine Ratio 03/23/2024 03/23/2023, 0 09/2022 Diabetic Eye Exam 03/23/2024 03/23/2023, , 11/05/2020, Additional history exists Diabetic Foot Exam 03/23/2024 03/23/2023, 0 03/22/2022, 03/30/2021, Additional history exists GFR 10/17/2024 10/18/2023, 020 10/2023, 10/20/2022, Additional history exists Mammogram 10/31/2024 11/01/2023, 10/13, 09/15/2021, Additional history exists Depression Screening 11/11/2024 11/12/2023 DXA Scan 11/20/2024 11/20/2022, 05/11/2020 Lipid Panel 03/23/2028 03/23/2023, 090 09/2022, 03/22/2022, Additional history exists DTap/Tdap Vaccines (3 - Td or Tdap) 09/06/2028 09/06/2018, 08/04/2008, 04/03/2003 Colonoscopy 08/21/2029 08/22/2019, 08/12, 02/19/2009 Colorectal Cancer Screening 08/21/2029 Hepatitis B Vaccine Completed 10/02/2003, 05/02/2003, 04/03/2003 VITAMIN D LEVEL ONCE IN A LIFETIME-USE SMARTSET# [id number] Completed 10/19/2021 Cervical Cancer Screening Discontinued HPV/Co-Test [...] Not on filedocumented as of this encounter Visit Diagnoses Diagnosis Diabetes mellitus without complication (HCC)- Primary Type II or unspecified type diabetes mellitus without mention of complication, not stated as uncontrolled Paroxysmal atrial fibrillation (HCC) Atrial fibrillation Dyslipidemia, goal LDL below 100 Other and unspecified hyperlipidemia MIREYA (obstructive sleep apnea) Obstructive sleep apnea (adult) (pediatric) Gastroesophageal reflux disease without esophagitis Esophageal reflux Arthralgia of knee, unspecified laterality Age-related osteoporosis without current pathological fracture Senile osteoporosis Adjustment disorder with depressed mood Vitamin D deficiency Unspecified vitamin D deficiency Primary osteoarthritis of right knee Primary localized osteoarthrosis, lower leg Generalized osteoarthritis of multiple sites Generalized osteoarthrosis, involving multiple sites Risk and functional assessment Screening for unspecified condition Need for influenza vaccination Need for prophylactic vaccination and inoculation against influenza documented in this encounter Advance Directives * Full Code [...] Power of Attor mayo? No Care Teams International Controller Relationship Specialty Start Date End Date Sarita Middleton MD [address] [place] [address] PCP - General Family Medicine 04/17/14 documented as of this encounter
--- OUTSIDE RECORDS SUMMARY | 2023-11-16 16:57 | External Medical Summary | Summary of Care ---
Author Name Unknown Organization [facility] Address [address] [place] [address] Phone [phone] Care Team Providers Care Accredited Pharmacy Technician Name Role Phone Sarita Middleton MD Primary Care Provider [phone] Encounter Details Date Type Department Care Team (Latest Contact Info) Description 11/01/2023 9:47 AM EDT - 11/01/2023 11:59 PM EDT Hospital Encounter Radiology, [address] [address] Arrived Discharge Disposition: Home - Self Care Allergies Active Allergy Reactions Criticality Noted Date Comments Ampicillin 04/15/1998 rash-yrs ago Tilactase Abdominal pain 11/20/2014 Erythromycin 05/31/1999 nausea Food (See Comments) 08/09/2002 strawberries, peaches and grapefruit Sulfa Antibiotics 03/15/2000 vomiting documented as of this encounter (statuses as of 11/02/2023) Medications Medication Sig Dispensed Refills Start Date End Date Status VITAMIN B-6 100 MG PO TABSIndications:[place] pause one a day 30 5 12/20/2004 Active CALCIUM 500 MG PO CAPS one cap by mouth daily 30 5 12/22/2005 Active aspirin 81 MG chewable tablet Take 1 Tab by mouth daily. 100 Tab 3 02/21/2016 Active Coenzyme Q10 10 MG CapsuleIndications:D yslipidemia, goal LDL below 100 Take 1 Cap by mouth daily. 30 Cap 5 06/18/2017 Active OneTouch Ultra 2 w/Device KitIndications:Diabe tor mellitus without complication (HCC) Use as directed to test blood sugar 1 times daily. May substitute based on insurance preference. 1 Kit 11/11/2019 Active Vitamin D 25 MCG (1000 UT) Oral TabletIndications:Vi tamin D deficiency Take by mouth 1 Tablet in the morning. 30 Tablet 11 10/20/2021 Active LORazepam 0.5 MG Oral Tablet (Ativan)Indications: Anxiety TAKE ONE (1) TABLET (0.5 MG) BY MOUTH AT BEDTIME NEEDED FOR ANXIETY. 30 Tablet 01/17/2022 Active OneTouch Delica Plus [id number] :Diabetes mellitus without complication (HCC) USE TO TEST BLOOD SUGAR ONCE DAILY 100 Each 3 07/13/2022 Active Glucose Blood In Vitro StripIndications:Marline betes mellitus without complication (HCC) USE TO TEST BLOOD SUGAR ONCE DAILY 100 Strip 3 07/13/2022 Active Olopatadine HCl 0.1 % Ophthalmic Solution (Pataday)Indications :Allergy, sequela Instill 1 Drop into both eyes in the morning and 1 Drop before bedtime. 5 mL 12 10/20/2022 Active CPAP every night at bedtime. Active Alendronate Sodium 70 MG Oral Tablet (Fosamax)Indications :Age-related osteoporosis without current pathological fracture Take 1 Tablet by mouth once a week. 12 Tablet 03/30/2023 Active Citalopram Hydrobromide 20 MG Oral Tablet (CeleXA) Take 1 Tablet by mouth in the morning. 90 Tablet 03/30/2023 Active dilTIAZem HCl ER Coated Beads 180 MG Oral Capsule Extended Release 24 Hour (Cardizem CD) Take 1 Capsule by mouth in the morning. 90 Capsule 03/30/2023 Active Diclofenac Sodium 50 MG Oral Tablet Delayed Release (Voltaren)Indication s:Primary osteoarthritis of right knee,Generalized osteoarthritis of multiple sites Take 1 Tablet by mouth every morning. 90 Tablet 03/30/2023 Active glipiZIDE ER 5 MG Oral Tablet Extended Release 24 Hour (Glucotrol XL)Indications:Diabe tor mellitus without complication (HCC) Take 1 Tablet by mouth in the morning. 90 Tablet 03/30/2023 Active metFORMIN HCl ER 500 MG Oral Tablet Extended Release 24 Hour (Glucophage XR) 2 tabs by mouth twice a day. 360 Tablet 1 03/30/2023 Active Omeprazole 40 MG Oral Capsule Delayed Release (PriLOSEC) Take 1 Capsule by mouth in the morning. 90 Capsule 3 04/02/2023 Active oxyCODONE-Acetaminop hen 5-325 MG Oral Tablet (Percocet) Take 1 Tablet by mouth every 4 hours as needed for Pain, Severe. 6 Tablet 05/15/2023 Active Additional Information Patient not taking.Informant: At Discharge, Reported on 11/01/2023 oxyCODONE-Acetaminop hen 5-325 MG Oral Tablet (Percocet) Take 1 Tablet by mouth every 4 hours as needed for Pain, Severe. 12 Tablet 05/15/2023 Active Additional Information Patient not taking.Reported on 11/01/2023 Ondansetron 4 MG Oral Tablet Disintegrating (Zofran) Place 1 Tablet on tongue every 8 hours as needed for Nausea. dissolve on tongue. 2 Tablet 05/15/2023 Active Ondansetron 4 MG Oral Tablet Disintegrating (Zofran) Place 1 Tablet on tongue every 8 hours as needed for Nausea. dissolve on tongue. 20 Tablet 05/15/2023 Active Atorvastatin Calcium 40 MG Oral Tablet (Lipitor)Indications :Dyslipidemia, goal LDL below 100 TAKE 1 TABLET EVERY MORNING 90 Tablet 3 09/22/2023 Active Ezetimibe 10 MG Oral Tablet (Zetia) TAKE 1 TABLET EVERY MORNING 90 Tablet 3 10/18/2023 Active documented as of this encounter (statuses as of 11/02/2023) Active Problems Problem Noted Date Diagnosed Date Paroxysmal atrial fibrillation 03/21/2022 Gastroesophageal reflux disease without esophagi tis 03/29/2021 Myofascial pain 06/15/2020 Age-related osteoporosis wit hout current pathological fracture 05/11/2020 Overview: High risk- treatment started Cervical nerve root impingement 02/12/2019 Diabetes mellitus without complication 9 Adjustment disorder with depressed mood 09/06/19 19 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 PROJECT: #[id number] WOOL DYER: Dannie De Jesus , PhD CONTACTS: Dannie Serna, Overhead Crane Operator at [phone] SUMMARY: Over one million people have now [...] guide clinical management of these patients. The [facility] Biobank offers an opportunity to address this challenge. [facility] contains whole exome sequencing data for over 50,000 patients, and these data are being clinically reviewed for evidence of disease-causing variants. This study is building a registry of [facility] participants who are found to be carrying [...] as of this encounter (statuses as of 11/02/2023) Resolved Problems Problem Noted Date Diagnosed Date Resolved Date Paroxysmal atrial fibrillation 03/21/2022 10/19/2022 Paroxysmal atrial fibrillation 03/21/2022 10/19/2022 Paroxysmal atrial fibrillation 03/21/2022 10/19/2022 Age-related osteoporosis wendi santiago current pathological fracture 05/11/2020 03/29/2021 Overview: High risk- treatment started Type 2 diabetes mellitus with hyperglycemia 09/06/2018 03/03/2019 Hyperglycemia 09/22/2017 03/02/2019 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: 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 Arrhythmogenic Right Ventricular Cardiomyopathy (ARVC).by MyCode Examination following surgery 10/12/2008 09/20/2017 Knee joint pain 01/20/2011 Sleep apnea 09/21/2019 documented as of this encounter (statuses as of 11/02/2023) Immunizations Name Administration Dates Next Due COVID-19 mRNA, LNP-s, No Pre serve, 2-Dose Series (Pfizer) 08/20/2021,12/13/2020,11/22/2020 PPD 02/19/2013, 1,12/28/2008,02/06 Pneumococcal Polysaccharide PPV23 (Pneumovax) 09/06/2018 Seasonal Influenza, PF, 6 M & above, [...] Care Team (Late st Contact Info) Description 11/12/2023 8:00 AM EDT [facility] [place] [address] Sarita Middleton MD [address] [place] [address] 12/05/2023 11:00 AM EDT [facility] [address] [place] [address] Jean Carranza PA-C [address] [place] [address] 04/18/2024 10:00 AM EST [facility] [place] [address] Sarita Middleton MD [address] [place] [address] 10/23/2024 10:00 AM EDT Imaging Radiology, [place] [address] [place] [address] 10/30/2024 9:20 AM EDT Office Visit Sleep Disorders Medicine [place], [place] [address] [place] [address] Connie Brown MD [address] [place] [address] [place] [address] Scheduled Procedures Name Priority Associated Diagnoses Date/Ti [...] Vaccine ( season) 2023 08/20/2021, 12/13/2020, 11/22/2020 Influenza Vaccine (FLU shot) (#1) 2023 01/08/2023, 10/19/2021, 12/13/2020, Additional history exists Depression Screening 10/21/2023 10/20/2022 Albumin/Creatinine Ratio 03/23/2024 03/23/2023, 02/0 09/2022 Diabetic Eye Exam 03/23/2024 03/23/2023, , 11/05/2020, Additional history exists Diabetic Foot Exam 03/23/2024 03/23/2023, 0 03/22/2022, 03/30/2021, Additional history exists GFR 10/17/2024 10/18/2023, 020 10/2023, 10/20/2022, Additional history exists Mammogram 10/31/2024 11/01/2023, 10/13, 09/15/2021, Additional history exists DXA Scan 11/20/2024 11/20/2022, 05/11/2020 Lipid Panel 03/23/2028 03/23/2023, 09/0 09/2022, 03/22/2022, Additional history exists DTap/Tdap Vaccines (3 - Td or Tdap) 09/06/2028 09/06/2018, 08/04/2008, 04/03/2003 Colonoscopy 08/21/2029 08/22/2019, 08/12, 02/19/2009 Colorectal Cancer Screening 08/21/2029 Hepatitis B Vaccine Completed 10/02/2003, 05/02/2003, 04/03/2003 VITAMIN D LEVEL ONCE IN A LIFETIME-USE SMARTSET# [id number] Completed 10/19/2021 Cervical Cancer Screening Discontinued HPV/Co-Test Discontinued 03/22/2022 Pap Smear Discontinued 03/22/2022, 02/13, 02/28/2016, Additional history exists HPV (Gardasil) Vaccine Aged Out No lo nger eligible based on patient's age to complete this topic MENINGOCOCCAL (MENACTRA/MENVEO) Aged Out No longer eligible based on patient's age to complete this topic documented as of this encounter Medical Devices Not on filedocumented as of this encounter Procedures Procedure Name Priority Date/Time Associated Diagnosis Comments MAMMOGRAM SCREENING JACIEL BILATERAL Routine 11/01/2023 10:10 AM EDT Encounter for screening mammogram for malignant neoplasm of breast documented in this encounter Results * MAMMOGRAM SCREENING JACIEL BILATERAL (11/01/2023 10:10 AM EDT) Anatomical Region Laterality Modality Breast Bilateral Mammography Narrative 11/01/2023 5:16 PM EDT Result MAMMOGRAM SCREENING JACIEL BILATERAL History Encounter for screening mammogram for malignant neoplasm of breast The patient has no documented relevant family history. Films Compared 10/26/2022 MAMMOGRAM SCREENING JACIEL BILATERAL, 09/15/2021 MAMMOGRAM SCREENING JACIEL BILATERAL, 09/10/2020 MAMMOGRAM SCREENING JACIEL BILATERAL, 08/21/2019 MAMMOGRAM SCREENING BILATERAL, and 04/05/2018 MAMMOGRAM SCREENING BILATERAL Findings The breasts are heterogeneously dense, which may obscure small masses. There is no evidence of suspicious masses, calcifications, or other abnormal findings. Impression Bilateral No mammographic evidence of malignancy. BI-RADS Category: 1 - Negative. Recommendation Screening mammogram in 1 year is recommended for both breasts. Digital breast tomosynthesis was performed. This digital mammogram has been analyzed with the computer aided detection system. This notice contains the results of your recent mammogram, including information about breast density. If your mammogram shows that your breast tissue is dense, you should know that dense breast tissue is a common finding and is not abnormal. Statistics show many women could have dense or highly dense breasts. Dense breast tissue can make it harder to find cancer on a mammogram and may be associated with an increased risk of cancer. This information about the result of your mammogram is given to you to raise your awareness and to inform your conversations with your physician. Together, you can decide which screening options are right for you, based on your mammogram results, individual risk factors or physical examination. A report of your results was sent to your physician. Breast tissue can be either dense or not dense. Dense tissue makes it harder to find breast cancer on a mammogram and also raises the risk of developing breast cancer. Your breast tissue is dense. In some people with dense tissue, other imaging tests in addition to a mammogram may help find cancers. Talk to your healthcare provider about breast density, risks for breast cancer, and your individual situation. This examination was performed at [facility], [address] [place] [address]. [phone] Sarita Middleton MD RAD MAMMOGRAPHY documented in this encounter Visit Diagnoses Diagnosis Encounter for screening mammogram for malignant neoplasm of breast Other screening mammogram documented in this encounter Advance Directives * [...] Power of Attor mayo? No Care Teams Accredited Pharmacy Technician Relationship Specialty Start Date End Date Sarita Middleton MD [address] [place] [address] PCP - General Family Medicine 04/17/14 documented as of this encounter
--- OUTSIDE RECORDS SUMMARY | 2023-11-16 16:58 | External Medical Summary | Summary of Care ---
Author Name Unknown Organization [facility] Address [address] [place] [address] Phone [phone] Care Team Providers Care Preservative Filler Machine Operator Name Role Phone Sarita Middleton MD Primary Care Provider [phone] Reason for Visit * Reason Comments Follow Up Encounter Details Date Type Department Care Team (Late st Contact Info) Description 11/01/2023 9:00 AM EDT Office Visit Sleep Disorders Medicine [facility] [address] [place] [phone] Connie Brown MD [address] [facility] [place] [address] MIREYA (obstructive sleep apnea)* Allergies Active Allergy Reactions Criticality Noted Date Comments Ampicillin 04/15/1998 rash-yrs ago Tilactase Abdominal pain 11/20/2014 Erythromycin 05/31/1999 nausea Food (See Comments) 08/09/2002 strawberries, peaches and grapefruit Sulfa Antibiotics 03/15/2000 vomiting documented as of this encounter (statuses as of 11/01/2023) Medications Medication Sig Dispensed Refills Start Date End Date Status VITAMIN B-6 100 MG PO TABSIndications:Yeny pause one a day 30 5 12/20/2004 [...] 30 Tablet 01/17/2022 Active OneTouch Delica Plus [id number] :Diabetes mellitus without complication (HCC) USE TO [...] mouth once a week. 12 Tablet 1 03/30/2023 Active Citalopram Hydrobromide 20 MG Oral Tablet (CeleXA) Take 1 Tablet by mouth in the morning. 90 Tablet 1 03/30/2023 Active dilTIAZem HCl ER Coated Beads [...] mouth in the morning. 90 Tablet 1 03/30/2023 Active metFORMIN HCl ER 500 MG [...] as of this encounter (statuses as of 11/01/2023) Active Problems Problem Noted Date Diagnosed Date [...] clinical research program 09/03/2017 Overview: [facility] Research Study*[id number]. PROJECT: #[id number] NON DESTRUCTIVE TESTER: Dannie De Jesus , PhD CONTACTS: Dannie Serna, Parachute Rigger at [phone] SUMMARY: Over one million people have now [...] guide clinical management of these patients. The [facility] offers an opportunity to address this challenge. [place] contains whole exome sequencing data for over 50,000 patients, and these data are being clinically reviewed for evidence of disease-causing variants. This study is building a registry of [facility] participants who are found to be carrying [...] as of this encounter (statuses as of 11/01/2023) Resolved Problems Problem Noted Date Diagnosed Date [...] as of this encounter (statuses as of 11/01/2023) Immunizations Name Administration Dates Next Due COVID-19 [...] Date Smoking Tobacco: Never Smokeless Tobacco: Never Tobacco Cessation:Counseling Given: Not Answered Alcohol Use Standard Drinks/Week Comments No 0 [...] Sign Reading Time Taken Comments Blood Pressure 113/62 11/01/2023 9:04 AM EDT Pulse 73 11/01/2023 9:04 AM EDT Temperature - - Respiratory Rate - - Oxygen Saturation - - Inhaled Oxygen Concentration - - Weight 67.1 kg (148 lb) 11/01/2023 9:04 AM EDT Height 157.5 cm (5' 2") 11/01/2023 9:04 AM EDT Body Mass Index 27.07 11/01/2023 9:04 AM EDT documented in this encounter Functional [...] No 01/05/2015 documented as of this encounter Progress Notes * Connie Brown MD - 11/01/2023 9:21 AM EDT Name: Bridgette Caraballo Sex: female : 1960 Visit date not found (in office), Visit date not found (telemedicine) Nursing Notes: Irene Huynh LPN 11/01/23 0915 Sign at exiting of workspace Bridgette Caraballo [id number] Body mass index is 27.07 kg/m. Neck Circumference: inches. Current CDL License: No F/U MIREYA with use of CPAP. Card taken to [facility] for download EPWORTH SLEEPINESS SCALE: 0 = would never doze 1 = slight chance of dozing 2 = moderate chance of dozing 3 = high chance of dozing Sitting and reading - 0 Watching TV - 0 Sitting, inactive in a public place - 0 Passenger in a car - 0 Lying down to rest - 1 Sitting and talking - 0 Sitting quietly after lunch - 0 In a car, stopped in traffic - 0 Total - 03/07 FOSQ-10 Q1. Do you have difficulty concentrating on things you do because you are sleepy or tired?No Q2. Do you generally have difficulty remembering things because you are sleepy or tired?No Q3. Do you have difficulty operating a motor vehicle for short distances (less than 100 miles) because you become sleepy? No Q4. Do you have difficulty operating a motor vehicle for long distances (greater than 100 miles) because you become sleepy?No Q5. Do you have difficulty visiting your family or friends in their home because you become sleepy or tired?No Q6. Has your relationship with family, friends or work colleagues been affected because you are sleepy or tired?No Q7. Do you have difficulty watching a movie or video because you become sleepy or tired?No Q8. Do you have difficulty being as active as you want to be in the evening because you are sleepy or tired?No Q9. Do you have difficulty being as active as you want to be in the morning because you are sleepy or tired?No Q10. Has your mood been affected because you are sleepy or tired? No Score 40 INTERVAL HISTORY: Patient came for f/u. Patient is sleeping well, no snoring and feeling well during the day. DME: Sen Patient goes to bed by 10PM. Patient usually wakes up by 7 AM. On weekends, patient tends to keep same schedule. Patient estimates a total sleep time (in a 24 hour period) of 7 hours. Sleep position: side CPAP: 7 cmH2O with nasal mask SLEEP FUNCTIONAL OUTCOME MEASURES ESS: 03/07 Past Medical History: Diagnosis Date Age-related osteoporosis without current pathological fracture 05/11/2020 High risk- treatment started Atrial fibrillation (HCC) 12/2014 a fib with RVR and cardioversion at [facility] Cervical nerve root impingement 2019 Diabetes mellitus [...] 08/[address] Hemanth Guerra in [place] HEART ELECTROCONVERSION, EXTERNAL N/A 01/06/2015 DC CARDIOVERSION performed by Moy Abdalla MD at [facility] KNEE ARTHROSCOPY/MENISCECTOMY 10/02/2008 ARTHROSCOPY KNEE MEDIAL OR LATERAL MENISCECTOMY performed by DEISI STILL at [facility] LIGATE/CUT OVIDUCT(S) 1980 MRI KNEE WO CONTRAST 09/14/2008 vertical tear of left medial meniscus SLEEP STUDY, W/O CPAP 02/2011 Social History Socioeconomic History Marital status: Spouse name: Buddy Number of children: 2 Years of education: Not on file Highest education level: Not on file Occupational History Comment: childcare Tobacco Use Smoking status: Never Smokeless tobacco: Never Vaping Use Vaping status: Never Used Substance and Sexual Activity Alcohol use: No Drug use: No Sexual activity: Yes Partners: Male control/protection: Surgical Comment: TUBAL Other Topics Concern Not on file Social History Narrative Son=Bobo and daughter=Keo Grandson (keo's son) Juan Does Daycare and crafts Social Determinants of Health Financial Resource Strain: Low Risk (03/23/2023) Financial Resource Strain Do you have any trouble paying for your medications, or do you think you might in the future? (Adult - for ages 18 years and over): No Does your family have trouble paying for medicine? (Household - for ages 0-17 years): Not on file Food Insecurity: No Food Insecurity (03/23/2023) Food Insecurity Do you need food for this week? (Adult - for ages 18 years and over): No Are you able to get enough food for your family? (Household - for ages 0-17 years): Not on file Does your family need food this week? (Household - for ages 0-17 years): Not on file Do you always have enough food for your family? (Household - for ages 0-17 years): Not on file Transportation Needs: No Transportation Needs (03/23/2023) Transportation Needs Do you have trouble getting a ride to medical visits or work? (Adult - for ages 18 years and over):Never True Does your family have a hard time getting a ride to doctors visits? (Household - for ages 0-17 years): Not on file Has lack of transportation kept you from medical appointments, meetings, work, or from getting things needed for daily living? Check all that apply. (Adult - for ages 18 years and over): Not on file Do you (or your family) have trouble finding or paying for a ride (transportation)? (Household - for ages 0-17 years): Not on file Social Connections: Socially Integrated (03/23/2023) Social Connections How often do you feel lonely or isolated from those around you? (Adult - for ages 18 years and over): Never Housing Stability: Low Risk (03/23/2023) Housing Stability Do you currently live in a correction or have no steady place to sleep at night? (Adult - for ages 18 years and over): No Do you think you are at risk of becoming homeless? (Adult - for ages 18 years and over): No Does your family worry about paying for your home or becoming homeless? (Household - for ages 0-17 years): Not on file Are you homeless or worried that you might be in the future? (Adult - for ages 18 years and over): Not on file Are you (or your family) homeless or worried that you might be in the future? (Household - for ages0-17 years): Not on file Sleep ROS: No sleep disorders Allergies as of 11/01/2023 - Reviewed 11/01/2023 Allergen Reaction Noted Ampicillin 04/15/1998 Dairy aid [tilactase] Abdominal pain 11/20/2014 Erythromycin 05/31/1999 Food (see comments) 08/09/2002 Sulfa antibiotics 03/15/2000 Current Outpatient Medications Medication Sig Dispense Refill VITAMIN B-6 100 MG PO TABS one a day 30 5 CALCIUM 500 MG PO CAPS one cap by mouth daily 30 5 aspirin 81 MG chewable tablet Take 1 Tab by mouth daily. 100 Tab 3 Coenzyme Q10 10 MG Capsule Take 1 Cap by mouth daily. 30 Cap 5 Vitamin D 25 MCG (1000 UT) Oral Tablet Take by mouth 1 Tablet in the morning. 30 Tablet 11 LORazepam 0.5 MG Oral Tablet (Ativan) TAKE ONE (1) TABLET (0.5 MG) BY MOUTH AT BEDTIME NEEDED FOR ANXIETY. 30 Tablet 0 CPAP every night at bedtime. Alendronate Sodium [...] 1 TABLET EVERY MORNING 90 Tablet 3 OneTouch Ultra 2 w/Device Kit Use as directed to test blood sugar 1 times daily. May substitute based on insurance preference. 1 Kit 0 OneTouch Delica Plus [id number] USE TO TEST BLOOD SUGAR ONCE DAILY 100 Each 3 Glucose Blood In Vitro Strip USE TO TEST BLOOD SUGAR ONCE DAILY 100 Strip 3 Olopatadine HCl 0.1 % Ophthalmic Solution (Pataday) Instill 1 Drop into both eyes in the morning and 1 Drop before bedtime. 5 mL 12 oxyCODONE-Acetaminophen 5-325 MG Oral Tablet (Percocet) Take 1 Tablet by mouth every 4 hours as needed for Pain, Severe. (Patient not taking: Reported on 11/01/2023) 6 Tablet 0 oxyCODONE-Acetaminophen 5-325 MG Oral Tablet (Percocet) Take 1 Tablet by mouth every 4 hours as needed for Pain, Severe. (Patient not taking: Reported on 11/01/2023) 12 Tablet 0 Ondansetron 4 MG Oral Tablet Disintegrating (Zofran) Place 1 Tablet on tongue every 8 hours as needed for Nausea. dissolve on tongue. 2 Tablet 0 Ondansetron 4 MG Oral Tablet Disintegrating (Zofran) Place 1 Tablet on tongue every 8 hours as needed for Nausea. dissolve on tongue. 20 Tablet 0 No current facility-administered medications for this visit. BP 113/62 | Pulse 73 | Ht 1.575 m (5' 2") | Wt 67.1 kg (148 lb) | LMP 08/26/2010 | BMI 27.07 kg/m| BSA 1.71 m GENERAL: alert, healthy, no distress, well nourished, and well developed Exam: Const: No signs of acute distress present HEENT: Normocephalic, Nasal congestion absent, nasal valve incompetence absent, Posterior airspace:Person tongue position 3, Retrognathia absent, Overbite absent, High arched palate present, Tongue scalloping/ridging absent. Throat: Uvula. Neck: Supple and symmetric. Chest: Resp: CTA and negative wheezes/rhonchi/rales IHeart: Rhythm is regular. No heart murmur appreciated. Extremities: No edema of the lower limbs bilaterally. Musculoskeletal: Walks with a normal gait. Skin: Skin is warm and dry. Neuro: Coordination normal. No involuntary movement. Psych: Patient's attitude is cooperative. Mood is normal. Affect is normal. Impression and Plan Patient is a 63 yo lady with history of MIREYA, A.fib, DM MIREYA Continue using CPAP nightly Recommended routine cleaning and change of supplies as needed. Blood pressure was 113/62 today. JNC 7 lists MIREYA as a causal risk factor for hypertension. Effective treatment of hypertension decreases cardiovascular risk/injury. Consider weight loss. Lifestyle modification with diet and exercise changes were encouraged becauseweight loss often results in improvement of sleep disordered breathing. Avoid driving, operating heavy machinery or engaging in any activity that requires full alertness if feeling sleepy, drowsy or otherwise impaired. Recommended patient keep consistent bed/wake times and to get 7-8 hours of sleep Review good sleep hygiene F/U in one year Connie Brown MD documented in this encounter Nursing Notes * Irene Huynh LPN - 11/01/2023 9:12 AM EDT Bridgette Caraballo [id number] Body mass index is 27.07 kg/m. Neck Circumference: inches. Current CDL License: No F/U MIREYA with use of CPAP. Card taken to [employer] for download EPWORTH SLEEPINESS SCALE: 0 = would never doze 1 = slight chance of dozing 2 = moderate chance of dozing 3 = high chance of dozing Sitting and reading - 0 Watching TV - 0 Sitting, inactive in a public place - 0 Passenger in a car - 0 Lying down to rest - 1 Sitting and talking - 0 Sitting quietly after lunch - 0 In a car, stopped in traffic - 0 Total - 03/07 FOSQ-10 Q1. Do you have difficulty concentrating on things you do because you are sleepy or tired?No Q2. Do you generally have difficulty remembering things because you are sleepy or tired?No Q3. Do you have difficulty operating a motor vehicle for short distances (less than 100 miles) because you become sleepy? No Q4. Do you have difficulty operating a motor vehicle for long distances (greater than 100 miles) because you become sleepy?No Q5. Do you have difficulty visiting your family or friends in their home because you become sleepy or tired?No Q6. Has your relationship with family, friends or work colleagues been affected because you are sleepy or tired?No Q7. Do you have difficulty watching a movie or video because you become sleepy or tired?No Q8. Do you have difficulty being as active as you want to be in the evening because you are sleepy or tired?No Q9. Do you have difficulty being as active as you want to be in the morning because you are sleepy or tired?No Q10. Has your mood been affected because you are sleepy or tired? No Score 40 documented in this encounter Miscellaneous Notes * Pt Handout (on AVS) - Connie Brown MD - 11/01/2023 9:30 AM EDT [id number] Obstructive Sleep Apnea Obstructive sleep apnea is a condition caused by air passages becoming narrowed or blocked during sleep. As a result, breathing stops for short periods. Your body wakes up enough for breathing to start again. But you don't remember it. The cycle of stopped breathing and brief awakenings can repeat dozens of times a night. This prevents the body from getting to the deeper stages of sleep that are needed for good rest. Signs of sleep apnea include loud snoring, noisy breathing, and gasping sounds during sleep. Peoplewith sleep apnea often find they use the bathroom many times during the night. Daytime symptoms include waking up tired after a full night's sleep and waking up with headaches. They can also include feeling very sleepy or falling asleep during the day, and having problems with memory or concentration. Risk factors for sleep apnea include: Being overweight Being assigned male at , or being in menopause Smoking Using alcohol or sedating medicines Having enlarged structures in the nose or throat such as enlarged tonsils or adenoids, or extra tissue in the airway Home care Lifestyle changes that can help treat snoring and sleep apnea include: If you're overweight, talk with your healthcare provider about a weight-loss plan for you. Don't drink alcohol for 3 to 4 hours before bedtime. Don't take sedating medicines. Ask your healthcare provider about the medicines you take. If you smoke, talk to your provider about ways to quit. It's important to stay away from secondhand smoke. Don't use e-cigarettes because of their harmful side effects. Sleep on your side. This can help prevent gravity from pulling relaxed throat tissues into your breathing passages. If you have allergies or sinus problems that block your nose, ask your provider for help. Use positive airway pressure (PAP). Discuss with your provider the benefits of using PAP at home. And talk about the type of PAP that's best for you. Follow-up care Follow up with your healthcare provider, or as advised. A diagnosis of sleep apnea is made with a sleep study. Your provider can tell you more about this test. When to get medical care See your healthcare provider if you have daytime symptoms of sleep apnea. These include: Waking up tired after a full night's sleep Waking up with a headache Feeling very sleepy or falling asleep during the day Having problems with memory or concentration Also talk with your provider if your partner tells you that you snore, gasp for air, or stop breathing while you sleep. Seeing your provider is important because sleep apnea can make you more likely to have certain health problems. These include high blood pressure, heart attack, stroke, and sexual dysfunction. If youhave sleep apnea, talk with your healthcare provider about the best treatments for you. Last Reviewed Date: 06/12/202119997040-5774 The [employer]. All rights reserved. This information is not intended as a substitute for professional medical care. Always follow your healthcare professional's instructions. documented in this encounter Plan of Treatment Upcoming Encounters Date Type Department Care Team (Late st Contact Info) Description 11/12/2023 8:00 AM EDT Office Visit [facility] [place] [address] [facility] [place] [address] Sarita Middleton MD [address] [facility] [place] [address] 12/05/2023 11:00 AM EDT Office Visit [facility] [address] [place] [address] Jean Carranza PA-C [address] [place] [address] 04/18/2024 10:00 AM EST Office Visit Family Practice, [place] [address] [facility] [place] [address] Sarita Middleton MD [address] [place] [address] 10/23/2024 10:00 AM EDT Imaging Radiology, [place] [address] [place] [address] 10/30/2024 9:20 AM EDT Office Visit Sleep Disorders Medicine [facility] [place] [address] [phone] Connie Brown MD [address] [facility] [place] [address] Scheduled Procedures Name Priority Associated Diagnoses Date/Ti [...] Additional history exists Depression Screening 10/21/2023 10/20/2022 Mammogram 10/27/2023 10/26/2022, 0 05/2021, 09/10/2020, Additional history exists Albumin/Creatinine Ratio 03/23/2024 03/23/2023, 0 09/2022 Diabetic Eye Exam 03/23/2024 03/23/2023, , 11/05/2020, Additional history exists Diabetic Foot Exam 03/23/2024 03/23/2023, 0 03/22/2022, 03/30/2021, Additional history exists GFR 10/17/2024 10/18/2023, 0 10/2023, 10/20/2022, Additional history exists DXA Scan 11/20/2024 11/20/2022, 05/11/2020 Lipid Panel 03/23/2028 03/23/2023, 0 09/2022, 03/22/2022, Additional history exists DTap/Tdap Vaccines (3 - Td or Tdap) 09/06/2028 09/06/2018, 08/04/2008, 04/03/2003 Colonoscopy 08/21/2029 08/22/2019, 08/12, 02/19/2009 Colorectal Cancer Screening 08/21/2029 Hepatitis B Vaccine Completed 10/02/2003, 05/02/2003, 04/03/2003 VITAMIN D LEVEL ONCE IN A LIFETIME-USE SMARTSET# [id number] Completed 10/19/2021 Cervical Cancer Screening Discontinued HPV/Co-Test [...] as of this encounter Visit Diagnoses Diagnosis MIREYA (obstructive sleep apnea)- Primary Obstructive sleep apnea (adult) (pediatric) documented in this encounter Advance Directives * [...] Power of Attor mayo? No Care Teams Preservative Filler Machine Operator Relationship Specialty Start Date End Date [facility]leton [facility] [address] [facility] [place] [address] PCP - General Family Medicine 04/17/14 documented as of this encounter
--- OUTSIDE RECORDS SUMMARY | 2023-11-16 16:58 | External Medical Summary | Summary of Care ---
Author Name Unknown Organization [facility] Address [address] [place] [address] Phone [phone] Care Team Providers Care Project Management Intern Name Role Phone Sarita Middleton MD Primary Care Provider Encounter Details Date Type Department Care Team (Late st Contact Info) Description 10/29/2023 Orders Only [facility], [place] [address] [place] [address] Sarita Middleton MD [address] [place], [place] [phone] Allergies Active Allergy Reactions Criticality Noted Date Comments Ampicillin 04/15/1998 rash-yrs ago Tilactase Abdominal pain 11/20/2014 Erythromycin 05/31/1999 nausea Food (See Comments) 08/09/2002 strawberries, peaches and grapefruit Sulfa Antibiotics 03/15/2000 vomiting documented as of this encounter (statuses as of 10/29/2023) Medications Medication Sig Dispensed Refills Start Date [...] 30 Tablet 01/17/2022 Active OneTouch Delica Plus [id number]: Diabetes mellitus without complication (HCC) USE TO [...] the morning. 90 Capsule 3 04/02/2023 Active oxyCODONE-Acetaminoph en 5-325 MG Oral Tablet (Percocet) Take 1 Tablet by mouth every 4 hours as needed for Pain, Severe. 6 Tablet 05/15/2023 Active oxyCODONE-Acetaminoph en 5-325 MG Oral Tablet (Percocet) Take 1 Tablet by mouth every 4 hours as needed for Pain, Severe. 12 Tablet 05/15/2023 Active Ondansetron 4 MG Oral [...] as of this encounter (statuses as of 10/29/2023) Active Problems Problem Noted Date Diagnosed Date [...] control in clinical research program 09/03/2017 Overview: [facility] Research Study*[id number]. PROJECT: #[id number] DIRECTOR OF PERIOPERATIVE SERVICES: Dannie De Jesus , PhD CONTACTS: Christopher Nevius, Account Installation Specialist at [phone] SUMMARY: Over one million people have now [...] guide clinical management of these patients. The [facility] [employer] Biobank offers an opportunity to address this challenge. [employer] contains whole exome sequencing data for over 50,000 patients, and these data are being clinically reviewed for evidence of disease-causing variants. This study is building a [facility] who are found to be [facility] [...] as of this encounter (statuses as of 10/29/2023) Resolved Problems Problem Noted Date Diagnosed Date [...] as of this encounter (statuses as of 10/29/2023) Immunizations Name Administration Dates Next Due COVID-19 mRNA, LNP-s, No Pre serve, 2-Dose Series (Blue [place]illar) 08/20/2021,12/13/2020,11/22/2020 PPD 02/19/2013, 1,12/28/2008,02/06 Pneumococcal Polysaccharide PPV23 [...] No 03/23/2023 Does the household have a [facility] source of income? (Household - for ages [...] AM EDT Office Visit Sleep Disorders Medicine [facility] [address] [facility] [place] [phone] Connie Brown MD [address] [place] [address] 11/01/2023 10:15 AM EDT Appointment Radiology, [place] [address] [place] [address] 11/12/2023 8:00 AM EDT [facility] [address] [facility] [place] [address] Sarita Middleton MD [address] [facility] [place] [address] 12/05/2023 11:00 AM EDT Office Visit Orthopaedics, [place] Bojorquez [address] [place] [address] [place] [address] Jean Carranza PA-C [address] [place] [address] 04/18/2024 10:00 AM EST Office Visit [facility] [address] [place] [address] Sarita Middleton MD [address] [place] [address] 10/23/2024 10:00 AM EDT Imaging Radiology, [place] [address] [place] [address] Scheduled Procedures Name Priority Associated Diagnoses Date/Ti [...] Depression Screening 10/21/2023 10/20/2022 Mammogram 10/27/2023 10/26/2022, 08/0 05/2021, 09/10/2020, Additional history exists Albumin/Creatinine Ratio 03/23/2024 03/23/2023, 02/0 09/2022 Diabetic Eye Exam 03/23/2024 03/23/2023, , 11/05/2020, Additional history exists Diabetic Foot Exam 03/23/2024 03/23/2023, 0 03/22/2022, 03/30/2021, Additional history exists GFR 03/23/2024 10/18/2023, 02/0 10/2023, 10/20/2022, Additional history exists DXA Scan 11/20/2024 11/20/2022, 05/11/2020 Lipid Panel 03/23/2028 03/23/2023, 09/2022, 03/22/2022, Additional history exists DTap/Tdap Vaccines (3 - Td or Tdap) 09/06/2028 09/06/2018, 08/04/2008, 04/03/2003 Colonoscopy 08/21/2029 08/22/2019, 08/12, 02/19/2009 Colorectal Cancer Screening 08/21/2029 Hepatitis B Vaccine Completed 10/02/2003, 05/02/2003, 04/03/2003 VITAMIN D LEVEL ONCE IN A LIFETIME-USE SMARTSET# [id number] Completed 10/19/2021 Cervical Cancer Screening Discontinued HPV/Co-Test [...] Procedure Name Priority Date/Time Associated Diagnosis Comments XR CHEST 2 VIEWS Routine 10/18/2023 CHEMISTRY-OUTSIDE Routine 10/18/2023 documented in this encounter Results * (ABNORMAL) CHEMISTRY-OUTSIDE (10/18/2023) Not all results display below - see scan for full detail OUTSIDE LAB (SEE SCANNED REPORT) Comment:SCAN INCLUDES - PT I NR, PTT, BMP, CBCD CREATININE 0.66 0.6 - 1.2 MG/DL OUTSIDE LAB (SEE SCANNED REPORT) EGFR 92.7 ML/MIN OUTSIDE LA B (SEE SCANNED REPORT) POTASSIUM 3.9 3.5 - 5.1 MMOL/L OUTSIDE LAB (SEE SCANNED REPORT) GLUCOSE 106(A) 70 - 99 MG/DL OUTSIDE LAB (SEE SCANNED REPORT) HOURS FASTING OUTSID E LAB (SEE SCANNED REPORT) TRIGLYCERIDES-OUT SIDE LAB OUTSIDE LAB (SEE SCANNED REPORT) CHOLESTEROL-OUTSI DE LAB OUTSIDE LAB (SEE SCANNED REPORT) HDL-OUTSIDE LAB OUTS JENNIFER LAB (SEE SCANNED REPORT) CHOL/HDL RATIO-OUTSIDE LAB OUTSIDE LA B (SEE SCANNED REPORT) LDL (CALCULATED)-OUTS JENNIFER LAB OUTSIDE LAB (SEE SCANNED REPORT) LDL (DIRECT MEASURE)-OUTSIDE LAB OUTSIDE LAB (SEE SCANNED REPORT) HEMOGLOBIN, B0E-MWMPFWA LAB OUTSIDE LAB (SEE SCANNED REPORT) PHOSPHORUS-OUTSID E LAB OUTSIDE LAB (SEE SCANNED REPORT) PTH-OUTSIDE LAB OUTS JENNIFER LAB (SEE SCANNED REPORT) MICROALBUMIN RATIO-OUTSIDE LAB OUTSIDE LA B (SEE SCANNED REPORT) PROTEIN, UA-OUTSIDE LAB OUTSIDE LAB (SEE SCANNED REPORT) HGB 11.7(A) 12.0 - 16.0 G/DL OUTSIDE LAB (SEE SCANNED REPORT) 10/18/2023 Kavin Shanks MD LABORATORY OUTSIDE LAB (SEE SCANNED REPORT) * XR CHEST 2 VIEWS (10/18/2023) Anatomical Region Laterality Modality Chest Other 10/18/2023 Kavin Shanks MD RADIOLOGY (RAD Zarina ENAPOLLO) documented in this encounter Advance Directives * [...] Power of Attor mayo? No Care Teams Project Management Intern Relationship Specialty Start Date End Date Sarita Middleton MD [address] [facility] [place] [address] PCP - General Family Medicine 04/17/14 documented as of this encounter
--- OUTSIDE RECORDS SUMMARY | 2023-11-16 16:58 | External Medical Summary | Summary of Care ---
Author Name Unknown Organization [facility] Address [address] [place] [address] Phone [phone] Care Team Providers Care Hydraulic Dredge Operator Name Role Phone Sarita Middleton MD Primary Care Provider [phone] Encounter Details Date Type Department Care Team (Late st Contact Info) Description 10/24/2023 1:30 PM EDT Imaging Radiology, [address] [phone] Thyroid nodule Allergies Active Allergy Reactions Criticality Noted Date Comments Ampicillin 04/15/1998 rash-yrs ago Tilactase Abdominal pain 11/20/2014 Erythromycin 05/31/1999 nausea Food (See Comments) 08/09/2002 strawberries, peaches and grapefruit Sulfa Antibiotics 03/15/2000 vomiting documented as of this encounter (statuses as of 10/24/2023) Medications Medication Sig Dispensed Refills Start Date [...] 30 Tablet 01/17/2022 Active OneTouch Delica Plus [id number]: Diabetes mellitus without complication (HCC) USE TO [...] and 1 Drop before bedtime. 5 mL 10/20/2022 Active CPAP every night at bedtime. [...] by mouth twice a day. 360 Tablet 03/30/2023 Active Omeprazole 40 MG Oral Capsule [...] as of this encounter (statuses as of 10/24/2023) Active Problems Problem Noted Date Diagnosed Date [...] in clinical research program 09/03/2017 Overview: [facility] Research Study*[id number]. PROJECT: #[id number] TEST AUTOMATION ARCHITECT: Dannie De Jesus , PhD CONTACTS: Dannie Serna, Mortician Investigator at [phone] SUMMARY: Over one million people have now [...] guide clinical management of these patients. The [facility] offers an opportunity to address this challenge. [facility] contains whole exome sequencing data for over 50,000 patients, and these data are being clinically reviewed for evidence of disease-causing variants. This study is building a registry of [facility] participants who are found to be carrying [...] as of this encounter (statuses as of 10/24/2023) Resolved Problems Problem Noted Date Diagnosed Date [...] as of this encounter (statuses as of 10/24/2023) Immunizations Name Administration Dates Next Due COVID-19 [...] Medicine [place] [address] [place] [phone] Connie Brown MD [address] [place] [address] 11/01/2023 10:15 AM EDT Appointment Radiology, [place] [address] [facility] [place] [address] 11/12/2023 8:00 AM EDT Office Visit [facility] [address] [facility] [place] [address] Sarita Middleton MD [address] [facility] [place] [address] 12/05/2023 11:00 AM EDT Office Visit Orthopaedics, [place] [address] [place] [address] [place] [address] Jean Carranza PA-C [address] [place] [phone] 04/18/2024 10:00 AM EST [facility] [address] [place] [address] Sarita Middleton MD [address] [facility] [place] [phone] Scheduled Orders Name Type Priority Associated Diagnoses Orde r Schedule US HEAD AND NECK Medical Imaging Routine Thyroid nodule Expected: 10/23/2024, Expires: 11/22/2024 Scheduled Procedures Name Priority Associated Diagnoses Date/Ti [...] Depression Screening 10/21/2023 10/20/2022 Mammogram 10/27/2023 10/26/2022, 05/2021, 09/10/2020, Additional history exists Albumin/Creatinine Ratio 03/23/2024 03/23/2023, 0 09/2022 Diabetic Eye Exam 03/23/2024 03/23/2023, , 11/05/2020, Additional history exists Diabetic Foot Exam 03/23/2024 03/23/2023, 0 03/22/2022, 03/30/2021, Additional history exists GFR 03/23/2024 03/23/2023, 0 09/2022, 03/22/2022, Additional history exists DXA Scan 11/20/2024 11/20/2022, 05/11/2020 Lipid Panel 03/23/2028 03/23/2023, 0 09/2022, 03/22/2022, Additional history exists DTap/Tdap Vaccines (3 - Td or Tdap) 09/06/2028 09/06/2018, 08/04/2008, 04/03/2003 Colonoscopy 08/21/2029 08/22/2019, 08/12, 02/19/2009 Colorectal Cancer Screening 08/21/2029 Hepatitis B Vaccine Completed 10/02/2003, 05/02/2003, 04/03/2003 VITAMIN D LEVEL ONCE IN A LIFETIME-USE SMARTSET# [id number] Completed 10/19/2021 Cervical Cancer Screening Discontinued HPV/Co-Test [...] Procedure Name Priority Date/Time Associated Diagnosis Comments US HEAD AND NECK Routine 10/24/2023 2:01 PM EDT Thyroid nodule documented in this encounter Results * US HEAD AND NECK (10/24/2023 2:01 PM EDT) Anatomical Region Laterality Modality Neck, Head Ultrasound 10/24/2023 4:31 PM EDT Impressions 10/24/2023 4:29 PM EDT IMPRESSION: Left lobe thyroid nodule as discussed. Narrative 10/24/2023 4:29 PM EDT EXAM: US HEAD AND NECK HISTORY: Follow-up thyroid nodule TECHNIQUE: Real-time scanning performed of thyroid gland. COMPARISON: Thyroid ultrasound dated 10/24/2022 and prior studies FINDINGS: Thyroid Size: Right lobe-4.1 cm x 1.3 cm x 1.7 cm Left lobe-4.6 cm x 1.6 cm x 1.6 cm Isthmus-0.3 cm AP diameter Glandular contour maintained. Visualized parenchymal echotexture mildly heterogeneous bilaterally perhaps somewhat more heterogeneous left lobe as compared to right. There are several tiny subcentimeter ovoid predominantly sonolucent or complex with echogenic foci structures seen bilaterally nonspecific but suspect to reflect colloid cyst. A single focal nodule is redemonstrated. Nodule assessment: Left lobe: Lower pole mixed sonolucent and hypoechoic solid. Well-defined wider than tall with punctate echogenic foci. This measures approximately 13 mm x 7 mm x 8 mm. Previously reported on 10/24/2022 to measure 13 mm x 7.5 mm x 9 mm. By ultrasound characteristics this is felt TR 4. TI-RADS a guidelines would suggest additional follow-up ultrasound surveillance within a 12 month timeframe. No other focal nodule or mass is seen within the thyroid parenchymal tissue. There is no adjacent bulky lymphadenopathy. Procedure Note Say Randall MD - 10/24/2023 EXAM: US HEAD AND NECK HISTORY: Follow-up thyroid nodule TECHNIQUE: Real-time scanning performed of thyroid gland. COMPARISON: Thyroid ultrasound dated 10/24/2022 and prior studies FINDINGS: Thyroid Size: Right lobe-4.1 cm x 1.3 cm x 1.7 cm Left lobe-4.6 cm x 1.6 cm x 1.6 cm Isthmus-0.3 cm AP diameter Glandular contour maintained. Visualized parenchymal echotexture mildlyheterogeneous bilaterally perhaps somewhat more heterogeneous left lobe ascompared to right. There are several tiny subcentimeter ovoidpredominantly sonolucent or complex with echogenic foci structures seenbilaterally nonspecific but suspect to reflect colloid cyst. A singlefocal nodule is redemonstrated. Nodule assessment: Left lobe: Lower pole mixed sonolucent and hypoechoic solid. Well-defined wider thantall with punctate echogenic foci. This measures approximately 13 mm x 7mm x 8 mm. Previously reported on 10/24/2022 to measure 13 mm x 7.5 mm x9 mm. By ultrasound characteristics this is felt TR 4. TI-RADS aguidelines would suggest additional follow-up ultrasound surveillancewithin a 12 month timeframe. No other focal nodule or mass is seen within the thyroid parenchymaltissue. There is no adjacent bulky lymphadenopathy. IMPRESSION IMPRESSION: Left lobe thyroid nodule as discussed. Sarita Middleton MD RAD ULTRASOUND documented in this encounter Visit Diagnoses Diagnosis Thyroid nodule Nontoxic uninodular goiter documented in this encounter Advance Directives * [...] Power of Attor mayo? No Care Teams Hydraulic Dredge Operator Relationship Specialty Start Date End Date Sarita Middleton MD [address] [place] [address] PCP - General Family Medicine 04/17/14 documented as of this encounter
--- OUTSIDE RECORDS SUMMARY | 2023-11-16 16:58 | External Medical Summary | Summary of Care ---
Author Name Unknown Organization [facility] Address [address] [place] [address] Phone [phone] Care Team Providers Care Hand Glove Cleaner Name Role Phone Sarita Middleton MD Primary Care Provider [phone] Encounter Details Date Type Department Care Team (Late st Contact Info) Description 10/18/2023 Result Scan Unspecified Department <No scans attached> Allergies Active Allergy Reactions Criticality Noted Date [...] 30 Tablet 01/17/2022 Active OneTouch Delica Plus [id number]: Diabetes mellitus without complication (HCC) USE TO [...] control in clinical research program 09/03/2017 Overview: [facility] Research Study*[id number]. PROJECT: #[id number] DOG FOOD SHREDDER OPERATOR: Dannie De Jesus , PhD CONTACTS: Dannie Serna, Supervisor Slate Splitting at [phone] SUMMARY: Over one million people have now [...] guide clinical management of these patients. The [facility] offers an opportunity to address this challenge. [facility] contains whole exome sequencing data for over 50,000 patients, and these data are being clinically reviewed for evidence of disease-causing variants. This study is building a registry of [facility] who are found to be carrying [...] No 03/23/2023 Does the household have a [facility] source [facility] income? (Household - for [...] Medicine [place] [address] [place] [phone] Connie Brown MD [address] [place] [address] 11/01/2023 10:15 AM EDT Appointment [place] [address] [place] [address] 11/12/2023 8:00 AM EDT Office Visit [facility] [address] [facility] [place] [address] Sarita Middleton MD [address] [facility] [place] [address] 12/05/2023 11:00 AM EDT Office Visit Orthopaedics, [place] Bojorquez [address] [place] [address] Jean Carranza PA-C [address] [place] [address] 04/18/2024 10:00 AM EST [facility] [address] [place] [address] Sarita Middleton MD [address] [facility] [place] [address] 10/23/2024 10:00 AM EDT Imaging Radiology, [address] [place], [place] [phone] Scheduled Procedures Name Priority Associated Diagnoses Date/Ti [...] Depression Screening 10/21/2023 10/20/2022 Mammogram 10/27/2023 10/26/2022, 0805/2021, 09/10/2020, Additional history exists Albumin/Creatinine Ratio 03/23/2024 03/23/2023, 020 09/2022 Diabetic Eye Exam 03/23/2024 03/23/2023, , 11/05/2020, Additional history exists Diabetic Foot Exam 03/23/2024 03/23/2023, 0 03/22/2022, 03/30/2021, Additional history exists GFR 03/23/2024 10/18/2023, 020 10/2023, 10/20/2022, Additional history exists DXA Scan 11/20/2024 11/20/2022, 05/11/2020 Lipid Panel 03/23/2028 03/23/2023, 090 09/2022, 03/22/2022, Additional history exists DTap/Tdap Vaccines (3 - Td or Tdap) 09/06/2028 09/06/2018, 08/04/2008, 04/03/2003 Colonoscopy 08/21/2029 08/22/2019, 08/12, 02/19/2009 Colorectal Cancer Screening 08/21/2029 Hepatitis B Vaccine Completed 10/02/2003, 05/02/2003, 04/03/2003 VITAMIN D LEVEL ONCE IN A LIFETIME-USE SMARTSET# [id number] Completed 10/19/2021 Cervical Cancer Screening Discontinued HPV/Co-Test [...] Procedure Name Priority Date/Time Associated Diagnosis Comments EKG SCANNED RESULT 10/18/2023 documented in this encounter Results * EKG SCANNED RESULT (10/18/2023) 10/18/2023 No Physician Data Unknown EKG documented in this encounter Advance Directives * [...] Power of Attor mayo? No Care Teams Hand Glove Cleaner Relationship Specialty Start Date End Date Sarita Middleton MD [address] [place] [address] PCP - General Family Medicine 04/17/14 documented as of this encounter
--- OUTSIDE RECORDS SUMMARY | 2023-11-16 16:58 | External Medical Summary | Summary of Care ---
Author Name Unknown Organization [facility] Address [address] [place] [address] Phone [phone] Care Team Providers Care Military Source Operations Specialist Name Role Phone Sarita Resendiz MD Primary Care Provider [phone] Reason for Visit * Reason Comments eRx-Medication Refill Encounter Details Date Type Department Care Team (Late st Contact Info) Description 10/18/2023 Refill [facility], [place] [address] [place] [address] Sarita Resendiz MD [address] [facility] [place] [id number] Allergies Active Allergy Reactions Criticality Noted Date Comments Ampicillin 04/15/1998 rash-yrs ago Tilactase Abdominal pain 11/20/2014 Erythromycin 05/31/1999 nausea Food (See Comments) 08/09/2002 strawberries, peaches and grapefruit Sulfa Antibiotics 03/15/2000 vomiting documented as of this encounter (statuses as of 10/18/2023) Medications Medication Sig Dispensed Refills Start Date End Date Status VITAMIN B-6 100 MG PO TABSIndications:Men opause one a day 30 5 5 Active CALCIUM 500 MG PO CAPS one cap by mouth daily 30 5 6 Active aspirin 81 MG chewable tablet Take 1 Tab by mouth daily. 100 Tab 3 7 Active Coenzyme Q10 10 MG CapsuleIndications: Dyslipidemia, goal LDL below 100 Take 1 Cap by mouth daily. 30 Cap 5 8 Active OneTouch Ultra 2 w/Device KitIndications:Diab etes mellitus without complication (HCC) Use as directed to test blood sugar 1 times daily. May substitute based on insurance preference. 1 Kit 0 Active Vitamin D 25 MCG (1000 UT) Oral TabletIndications:V itamin D deficiency Take by mouth 1 Tablet in the morning. 30 Tablet 11 2 Active LORazepam 0.5 MG Oral Tablet (Ativan)Indications :Anxiety TAKE ONE (1) TABLET (0.5 MG) BY MOUTH AT BEDTIME NEEDED FOR ANXIETY. 30 Tablet 2 Active OneTouch Delica Plus [id number] s:Diabetes mellitus without complication (HCC) USE TO TEST BLOOD SUGAR ONCE DAILY 100 Each 3 3 Active Glucose Blood In Vitro StripIndications:Di abetes mellitus without complication (HCC) USE TO TEST BLOOD SUGAR ONCE DAILY 100 Strip 3 3 Active Olopatadine HCl 0.1 % Ophthalmic Solution (Pataday)Indication s:Allergy, sequela Instill 1 Drop into both eyes in the morning and 1 Drop before bedtime. 5 mL 12 3 Active CPAP every night at bedtime. Active Alendronate Sodium 70 MG Oral Tablet (Fosamax)Indication s:Age-related osteoporosis without current pathological fracture Take 1 Tablet by mouth once a week. 12 Tablet 1 4 Active Citalopram Hydrobromide 20 MG Oral Tablet (CeleXA) Take 1 Tablet by mouth in the morning. 90 Tablet 1 4 Active dilTIAZem HCl ER Coated Beads 180 MG Oral Capsule Extended Release 24 Hour (Cardizem CD) Take 1 Capsule by mouth in the morning. 90 Capsule 1 4 Active Diclofenac Sodium 50 MG Oral Tablet Delayed Release (Voltaren)Indicatio ns:Primary osteoarthritis of right knee,Generalized osteoarthritis of multiple sites Take 1 Tablet by mouth every morning. 90 Tablet 1 4 Active glipiZIDE ER 5 MG Oral Tablet Extended Release 24 Hour (Glucotrol XL)Indications:Diab etes mellitus without complication (HCC) Take 1 Tablet by mouth in the morning. 90 Tablet 1 4 Active metFORMIN HCl ER 500 MG Oral Tablet Extended Release 24 Hour (Glucophage XR) 2 tabs by mouth twice a day. 360 Tablet 1 4 Active Omeprazole 40 MG Oral Capsule Delayed Release (PriLOSEC) Take 1 Capsule by mouth in the morning. 90 Capsule 3 4 Active oxyCODONE-Acetamino phen 5-325 MG Oral Tablet (Percocet) Take 1 Tablet by mouth every 4 hours as needed for Pain, Severe. 6 Tablet 4 Active oxyCODONE-Acetamino phen 5-325 MG Oral Tablet (Percocet) Take 1 Tablet by mouth every 4 hours as needed for Pain, Severe. 12 Tablet 4 Active Ondansetron 4 MG Oral Tablet Disintegrating (Zofran) Place 1 Tablet on tongue every 8 hours as needed for Nausea. dissolve on tongue. 2 Tablet 4 Active Ondansetron 4 MG Oral Tablet Disintegrating (Zofran) Place 1 Tablet on tongue every 8 hours as needed for Nausea. dissolve on tongue. 20 Tablet 4 Active Atorvastatin Calcium 40 MG Oral Tablet (Lipitor)Indication s:Dyslipidemia, goal LDL below 100 TAKE 1 TABLET EVERY MORNING 90 Tablet 3 4 Active Ezetimibe 10 MG Oral Tablet (Zetia) TAKE 1 TABLET EVERY MORNING 90 Tablet 3 4 Active Ezetimibe 10 MG Oral Tablet (Zetia) Take 1 Tablet by mouth in the morning. 90 Tablet 1 4 10/18/19 24 Discontinued documented as of this encounter (statuses as of 10/18/2023) Active Problems Problem Noted Date Diagnosed Date [...] clinical research program 09/03/2017 Overview: [facility] Research Study*[id number]. PROJECT: #[id number] CIVIL DRAFTSMAN: Dannie De Jesus , PhD CONTACTS: Dannie Serna, Vulcanizing Press Operator at [phone] SUMMARY: Over one million people have now [...] guide clinical management of these patients. The [facility] offers an opportunity to address this challenge. [facility] contains whole exome sequencing data for over 50,000 patients, and these data are being clinically reviewed for evidence of disease-causing variants. This study is building a registry of [facility] participants who are found [...] as of this encounter (statuses as of 10/18/2023) Resolved Problems Problem Noted Date Diagnosed Date Resolved Date Paroxysmal atrial fibrillation 03/21/2022 10/19/2022 Paroxysmal atrial fibrillation 03/21/2022 10/19/2022 Paroxysmal atrial fibrillation 03/21/2022 10/19/2022 Age-related osteoporosis wit jack current pathological fracture 05/11/2020 03/29/2021 Overview: High risk- treatment started Type 2 diabetes mellitus with hyperglycemia 09/06/2018 03/03/2019 Hyperglycemia 09/22/2017 03/02/2019 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: 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 Arrhythmogenic Right Ventricular Cardiomyopathy (ARVC).by MyCode Examination following surgery 10/12/2008 09/20/2017 Knee joint pain 01/20/2011 Sleep apnea 09/21/2019 documented as of this encounter (statuses as of 10/18/2023) Immunizations Name Administration Dates Next Due COVID-19 [...] No 01/05/2015 documented as of this encounter Miscellaneous Notes * Telephone Encounter - Sarita Resendiz MD - 10/18/2023 9:02 AM EDTSigned Prescriptions: Disp Refills Ezetimibe 10 MG Oral Tablet (Zetia) 90 Tab*3 Sig: TAKE 1 TABLET EVERY MORNING Authorizing Provider: SARITA RESENDIZ * Telephone Encounter - Prudencio Vernon LPN - 10/18/2023 8:59 AM EDTPending Prescriptions: Disp Refills Ezetimibe 10 MG Oral Tablet [Pharmacy Med *90 Tab*3 Sig: TAKE 1 TABLET EVERY MORNING * Telephone Encounter - Prudencio Vernon LPN - 10/18/2023 8:59 AM EDT Did you pend patient's preferred pharmacy and medication before forwarding?yes Pharmacy: [facility] [address] [facility] Pending Prescriptions: Disp Refills Ezetimibe 10 MG Oral Tablet (Zetia) [Phar*90 Tab*3 Sig: TAKE 1 TABLET EVERY MORNING Last Visit: 05/18/2023 (in office), Visit date not found (telemedicine) Next Visit: 11/12/2023 If no future appointments scheduled, and last appointment is greater than a year ago, please schedule patient for a follow-up appointment Last date the medication was ordered: 03/30/23 Is this request for a controlled substance?No Urine Drug Screen:No results found for this or any previous visit. Patient Phone Numbers Labs: Lab Results Component Value Date/Time CREAT 0.7 03/23/2023 08:56 AM CREAT 0.8 11/10/2019 08:45 AM POTASSIUM 4.6 03/23/2023 08:56 AM POTASSIUM 4.3 11/10/2019 08:45 AM TSH 1.39 10/20/2022 08:31 AM TSH 2.11 06/06/2019 03:02 PM LDL 112 03/23/2023 08:56 AM LDL 131 (H) 03/22/2022 09:39 AM LDL 134 (H) 11/10/2019 08:45 AM LDL NOT APPLICABLE 11/10/2019 08:45 AM ALT 32 03/23/2023 08:56 AM ALT 28 11/10/2019 08:45 AM HGBA1C 6.7 (H) 03/23/2023 08:56 AM HGBA1C 7.7 (H) 11/10/2019 08:45 AM documented in this encounter Plan of Treatment Upcoming Encounters Date Type Department Care Team (Late st Contact Info) Description 10/25/2023 7:45 AM EDT Imaging Radiology, [place] [address] [facility] [place] [id number] 11/01/2023 9:00 AM EDT Office Visit Sleep Disorders Medicine [facility] [address] [facility] [place] [phone] Connie Brown MD [address] [place] [address] 11/01/2023 10:15 AM EDT [facility], [place] [facility] [address] [place] [address] 11/12/2023 8:00 AM EDT Office Visit [facility] [address] [facility] [place] [address] Sarita Resendiz MD [address] [facility] [place] [address] 12/05/2023 11:00 AM EDT Office Visit Orthopaedics, [address], [place] [address] [place] [address] Jean Carranza PA-C [address] [place] [address] 04/18/2024 10:00 AM EST Office Visit [facility] [address] [facility] [place] [address] Sarita Resendiz MD [address] [facility] [place] [address] Scheduled Procedures Name Priority Associated Diagnoses Date/Ti [...] 03/22/2022, Additional history exists COVID-19 Vaccine ( - 2022- season) 2023 08/20/2021, 12/13/2020, 11/22/2020 Influenza Vaccine (FLU shot) (#1) 2023 01/08/2023, 10/19/2021, 12/13/2020, Additional history exists Depression Screening 10/21/2023 10/20/2022 Mammogram 10/27/2023 10/26/2022, 080 05/2021, 09/10/2020, Additional history exists Albumin/Creatinine Ratio 03/23/2024 03/23/2023, 0 09/2022 Diabetic Eye Exam 03/23/2024 03/23/2023, , 11/05/2020, Additional history exists Diabetic Foot Exam 03/23/2024 03/23/2023, 0 03/22/2022, 03/30/2021, Additional history exists GFR 03/23/2024 03/23/2023, 090 09/2022, 03/22/2022, Additional history exists DXA Scan 11/20/2024 11/20/2022, 05/11/2020 Lipid Panel 03/23/2028 03/23/2023, 09/0 09/2022, 03/22/2022, Additional history exists DTap/Tdap Vaccines (3 - Td or Tdap) 09/06/2028 09/06/2018, 08/04/2008, 04/03/2003 Colonoscopy 08/21/2029 08/22/2019, 08/12, 02/19/2009 Colorectal Cancer Screening 08/21/2029 Hepatitis B Vaccine Completed 10/02/2003, 05/02/2003, 04/03/2003 VITAMIN D LEVEL ONCE IN A LIFETIME-USE SMARTSET# [id number] Completed 10/19/2021 Cervical Cancer Screening Discontinued HPV/Co-Test [...] Power of Attor mayo? No Care Teams Military Source Operations Specialist Relationship Specialty Start Date End Date Sarita Resendiz MD [address] [place] [address] PCP - General Family Medicine 04/17/14 documented as of this encounter
[2023-11-16] MEDS ORDERED: GLUCAGON FOR INJ 1 MG VIAL SQ PRN (17:06)
[2023-11-16] MEDS ORDERED: bisacodyL 10 MG SUPP PR PRN (17:06)
[2023-11-16] MEDS ORDERED: GLUCOSE 10 TAB/TUBE PO PRN (17:06)
[2023-11-16] MEDS ORDERED: DEXTROSE 50% 50 ML SYRINGE IV PRN (17:06)
[2023-11-16] MEDS ORDERED: LORazepam 0.5 MG TAB PO PRN (17:06)
[2023-11-16] MEDS ORDERED: PHARMACY GLYCEMIC MGMT CONSULT PRN (17:06)
[2023-11-16] MEDS ORDERED: MAGNESIUM HYDROXIDE SUSP 30 ML UDC PO PRN (17:06)
[2023-11-16] MEDS ORDERED: CARBOHYDRATES FOR HYPOGLYCEMIA PO PRN (17:06)
[2023-11-16] MEDS ORDERED: HYDROmorphone INJ 0.5 MG/0.5 ML SYR IV PRN (17:06)
[2023-11-16] MEDS ORDERED: ALUMINUM/MAGNESIUM SUSP 30 ML UDC PO PRN (17:06)
[2023-11-16] MEDS ORDERED: GLUCOSE 40% GEL 15 GM TUBE PO PRN (17:06)
[2023-11-16] MEDS: SODIUM CHLORIDE 0.9% 1,000 ML IV SCH (17:29)
[2023-11-16] MEDS: ONDANSETRON INJ 2 MG/ML 2 ML VIAL ONE (17:46)
[2023-11-16] MEDS: INSULIN ASPART PER UNIT CHARGE SC SCH (18:06)
[2023-11-16] MEDS: ASCORBIC ACID 500 MG TAB PO SCH (18:23)
[2023-11-16] MEDS: KETOROLAC 30 MG/ML VIAL IV SCH (18:24)
[2023-11-16] MEDS: SENNA 8.6 MG TAB PO SCH ×2 (20:29)
[2023-11-16] MEDS: DOCUSATE SODIUM 100 MG CAP PO SCH (20:29)
[2023-11-16] MEDS: ceFAZolin 1000MG 1,000 MG/7.5 ML SYR IV SCH (20:29)
[2023-11-16] MEDS: TRANEXAMIC ACID / 0.7% NACL 1,000 MG/100 ML BAG IV SCH (20:30)
[2023-11-16] MEDS: ASPIRIN 81 MG ECTAB PO SCH (20:30)
[2023-11-17] MEDS: oxyCODONE HCL IR 5 MG TAB (IMMEDIATE RELEASE) PO PRN (05:36)
[2023-11-17 06:25] LABS: Hematocrit (blood only) 33.2 % (37.0-47.0); Mean Corpuscular Hgb Conc 33.1 g/dL (32.0-36.0); Mean Corpuscular Volume 84.5 fL (80.0-100.0); Mean Platelet Volume 9.1 fL (9.4-12.4); Platelet Count 391 K/uL (130-400); RDW Coefficient of Variation 13.1 % (11.5-14.5); RDW Standard Deviation 40.5 fL (36.4-46.3); Red Blood Count 3.93 M/uL (4.20-5.40); White Blood Count 10.11 K/ul (4.8-10.8)
[2023-11-17 06:37] LABS: BUN Creatinine Ratio 12.3 (10-20); Calcium 8.4 mg/dl (8.6-10.3); Creatinine Clr Calc Pharmacy 68.2 ml/min; Potassium 4.1 mmol/L (3.5-5.1)
--- NOTE | 2023-11-17 06:55 | Orthopedic Progress Note ---
Date of Service November 17, 2023 Assessment & Plan (1) Status post right knee replacement: Plan: 63-year-old female postop day 1 from right knee replacement. She is doing pretty well. Pains controlled. Had a reasonable night. Hoping to go home today. Plan: 1. DVT prophylaxis including thigh-high teds, SCDs, aspirin twice a day. 2. PT/OT. Weight-bear as tolerated. Right total knee protocol. 3. Pain control doing okay with current pain regimen. 4. Disposition plan to discharge home with some home health later today if does okay in therapy Admission and Anticipated Discharge Date Admission Date: November 16, 2023 Subjective 63-year-old female postop day 1 from right knee replacement. She had a pretty good night. Pains been controlled. No chest pain or shortness of breath. Not feeling dizzy or lightheaded. Physical Exam Physical Exam: Physical nation was a pleasant middle-age female. Lying bed looks pretty comfortable. She was doing her exercise this morning. Examination of the right leg reveals the leg to be well aligned. Dressings clean dry and intact. She can do a straight leg raise. She can dorsiflex and plantarflex her foot appropriately. Results & Data Vital Signs (Past 12 Hours) Vital Signs Temp Pulse Resp BP Pulse Ox O2 Del Method 11/16/23 20:05 36.7 C 74 16 110/68 93 Room Air 11/16/23 19:12 36.6 C 88 16 119/70 95 Room Air Laboratory Results Hemoglobin 11.0. Hematocrit 33.2. Electrolytes are stable.
[2023-11-17] MEDS: ONDANSETRON INJ 2 MG/ML 2 ML VIAL IV PRN (07:03)
[2023-11-17] MEDS: METOCLOPRAMIDE HCL INJ 5 MG/ML 2 ML VIAL IV PRN (07:33)
[2023-11-17] MEDS ORDERED: NON-FORMULARY MEDICATION (Coenzyme Q10 10 mg Capsule) PO SCH (09:00)
[2023-11-17] MEDS ORDERED: glipiZIDE 5 MG TAB PO SCH (09:00)
[2023-11-17] MEDS: CALCIUM CARBONATE 500 MG CHEWABLE TAB PO SCH (09:06)
[2023-11-17] MEDS: EZETIMIBE 10 MG TAB PO SCH (10:55)
[2023-11-17] MEDS: PANTOprazole 40 MG TAB PO SCH (10:55)
[2023-11-17] MEDS: dilTIAZem HCL 180 MG CAPCR PO SCH (10:55)
[2023-11-17] MEDS: CITALOPRAM 20 MG TAB PO SCH (10:56)
[2023-11-17] MEDS: MULTIVITAMIN TAB PO SCH (10:58)
[2023-11-17] MEDS: PYRIDOXINE HCL 50 MG TAB PO SCH (10:58)
[2023-11-17] MEDS: CHOLECALCIFEROL 25 MCG (1000 UNITS) TAB PO SCH (10:58)
[2023-11-17] MEDS: dexAMETHasone 10 MG in SYRINGE 0 ML IV SCH (10:59)
[2023-11-17] MEDS: LANTUS PER UNIT CHARGE SC SCH (11:11)
[2023-11-17] MEDS: ATORVASTATIN 40 MG TAB PO SCH (12:00)
--- NOTE | 2023-11-20 06:39 | Discharge Summary ---
Date of Service November 20, 2023 Discharge Data Procedures Performed Operation Date: 11/16/23 12:00 Actual Procedures p Right Total Knee Arthroplasty(Right) - Kavin Shanks MD Hospital Course (1) Status post right knee replacement: This is a 63 year old patient admitted on 11/16/23 and underwent total knee arthroplasty. She tolerated the procedure well and there were no complications. Transferred to the PACU post op and later to the orthopedic floor for further care. She was given ancef for antibiotic prophylaxis. She was also given JENSEN stockings, SCDs, and aspirin for DVT prophylaxis. Hemoglobin, hematocrit, and vital signs were monitored during her hospital stay and remained stable. Did not require any blood transfusions. There were no complications during her hospital stay. By post op day #1 the patient was tolerating a diabetic diet, pain was reasonably controlled with oral pain medicine, and she was participating in physical therapy. On post op day #1 the patient was discharged home and set up with home health care. She was given printed discharge instructions including prescriptions for extra strength tylenol, aspirin, cefadroxil, ketorolac, zofran, oxycodone, and senokot. Continue physical therapy, weight bearing as tolerated. Continue JENSEN stockings. Follow up approximately 2 weeks post op or sooner if there are problems or concerns. Coding Level of Care Code None Diagnoses Status post right knee replacement Z96.651
== END 2023-11-17 14:23 | disposition home health service (06) ==
LOC: ASU 09:52 → 3E 09:52
DX: Z79.84 Long term (current) use of oral hypoglycemic drugs; Z79.899 Other long term (current) drug therapy; E11.9 Type 2 diabetes mellitus without complications; F41.9 Anxiety disorder, unspecified; E78.5 Hyperlipidemia, unspecified; Z88.8 Allergy status to other drugs, medicaments and biological substances; Z91.011 Allergy to milk products; M17.11 Unilateral primary osteoarthritis, right knee; K21.9 Gastro-esophageal reflux disease without esophagitis; I10 Essential (primary) hypertension; I48.91 Unspecified atrial fibrillation; Z79.82 Long term (current) use of aspirin; Z88.5 Allergy status to narcotic agent; G47.33 Obstructive sleep apnea (adult) (pediatric); Z91.018 Allergy to other foods

== ENCOUNTER 2024-10-22 05:29 | Observation (INO) ==
--- NOTE | 2024-09-30 10:16 | PAT Medication Instructions ---
Medication Instructions Date of Service September 30, 2024 Home Medications Medication Instructions Recorded walker #1 ea 09/25/23 acetaminophen 500 mg tablet 1,000 mg (2 x 500 mg) PO TID pain 11/14/23 (Tylenol Extra Strength) 30 days #180 tabs alendronate 70 mg tablet (Fosamax) 70 mg PO WK aspirin 81 mg capsule 81 mg PO QAM atorvastatin 40 mg tablet 40 mg PO QAM calcium 500 mg tablet 500 mg PO QAM cholecalciferol (vitamin D3) 25 mcg (1,000 unit) tablet (Vitamin D3) 50 mcg PO QAM citalopram 20 mg tablet 20 mg PO QAM coenzyme Q10 10 mg capsule 10 mg PO QAM diltiazem HCl 180 mg tablet,extended release 24 hr 180 mg PO QAM ezetimibe 10 mg tablet 10 mg PO QAM glipizide 5 mg tablet 5 mg PO QAM lorazepam 0.5 mg tablet 0.5 mg PO DAILY PRN Anxiety metformin 500 mg tablet 1,000 mg PO BID omeprazole 20 mg tablet,delayed release 20 mg PO QAM pyridoxine (vitamin B6) 100 mg tablet (Vitamin B-6) 100 mg PO QAM acetaminophen 500 mg tablet (Tylenol Extra Strength) 1,000 mg (2 x 500 mg) PO TID pain clindamycin HCl 300 mg capsule 600 mg PO ONCE PRN dentist diclofenac sodium 50 mg tablet,delayed release 50 mg PO DAILY Continue as directed clindamycin HCl 300 mg capsule 600 mg PO ONCE PRN dentist ASK your surgeon for instructions alendronate 70 mg tablet (Fosamax) 70 mg PO WK diclofenac sodium 50 mg tablet,delayed release 50 mg PO DAILY ASK your prescriber and surgeon aspirin 81 mg capsule 81 mg PO QAM STOP taking 2 weeks before surgery (or as soon as possible if surgery is within 2 weeks) coenzyme Q10 10 mg capsule 10 mg PO QAM DO NOT take the morning of surgery calcium 500 mg tablet 500 mg PO QAM cholecalciferol (vitamin D3) 25 mcg (1,000 unit) tablet (Vitamin D3) 50 mcg PO QAM glipizide 5 mg tablet 5 mg PO QAM metformin 500 mg tablet 1,000 mg PO BID pyridoxine (vitamin B6) 100 mg tablet (Vitamin B-6) 100 mg PO QAM Take morning of surgery With a small sip of water, OTHERWISE NOTHING TO EAT OR DRINK AFTER MIDNIGHT: atorvastatin 40 mg tablet 40 mg PO QAM citalopram 20 mg tablet 20 mg PO QAM diltiazem HCl 180 mg tablet,extended release 24 hr 180 mg PO QAM ezetimibe 10 mg tablet 10 mg PO QAM lorazepam 0.5 mg tablet 0.5 mg PO DAILY PRN Anxiety (if needed) omeprazole 20 mg tablet,delayed release 20 mg PO QAM acetaminophen 500 mg tablet (Tylenol Extra Strength) 1,000 mg (2 x 500 mg) PO TID pain (if needed) Take evening before surgery lorazepam 0.5 mg tablet 0.5 mg PO DAILY PRN Anxiety (if needed) metformin 500 mg tablet 1,000 mg PO BID acetaminophen 500 mg tablet (Tylenol Extra Strength) 1,000 mg (2 x 500 mg) PO TID pain (if needed) Other Notes If you have any questions please call us at [phone] or [phone] or [phone] or [phone]
--- NOTE | 2024-10-06 11:41 | Anesthesiology Consultation ---
Date of Service October 06, 2024 Assessment & Plan (1) Encounter for pre-operative examination: - Check BSG DOS - Infectious disease screening: Per assessment on 10/06/24- No known recent infectious disease contacts or current infectious disease symptoms. - Outpatient joint assessment: Pt currently scheduled for inpatient pathway. If surgeon requests review for outpatient joint pathway, patient is an acceptable candidate for outpatient joint program from anesthesia standpoint pending surgeon's office assessment that patient is motivated, has good support and completes Same Day Joint Program preop requirements. - S/P Right TKA (11/16/23): SAB at L3-4 (1 attempt) + regional at [facility] Chart Review Chart Review: Acceptable Risk for Surgery and Patient seen in Pre Admission Testing Teaching & Discussion Pre-Anesthesia Teaching/Discussion Notes: Instructed NPO after midnight before surgery,except medications with 15 cc of water. Medication instructions provided according to the PAT guidelines. History Surgery Operation Date: 10/22/24 07:00 Proposed Procedures p Left Total Knee Arthroplasty - Kavin Shanks MD Height/Weight Height: 5 ft 2 in Weight: 72.2 kg Allergies Allergy/AdvReac Type Severity Reaction Status Date / Time grapefruit Allergy Intermediate Hives Verified 09/29/24 09:30 peach Allergy Intermediate Hives Verified 09/29/24 09:30 ampicillin Allergy Mild Hives Verified 09/29/24 09:30 erythromycin base AdvReac Intermediate Upset Verified 09/29/24 09:30 Stomach/Pain lactase [From Dairy Aid] AdvReac Intermediate Upset Verified 09/29/24 09:30 stomach strawberry AdvReac Intermediate Mouth Sores Verified 09/29/24 09:30 Sulfa (Sulfonamide AdvReac Intermediate Flu-like Verified 09/29/24 09:30 Antibiotics) symptoms acetaminophen [From Percocet] AdvReac Mild Nausea Verified 09/29/24 09:30 oxycodone [From Percocet] AdvReac Mild Nausea Verified 09/29/24 09:30 Medications Home Medications Medication Instructions Recorded Confirmed Last Taken walker #1 ea 09/25/23 09/25/24 Unknown alendronate 70 mg tablet (Fosamax) 70 mg PO WK 10/03/23 09/29/24 11/12/23 aspirin 81 mg capsule 81 mg PO QAM 10/03/23 09/29/24 11/02/23 atorvastatin 40 mg tablet 40 mg PO QAM 10/03/23 09/29/24 11/15/23 20:00 calcium 500 mg tablet 500 mg PO QAM 10/03/23 09/29/24 11/15/23 20:00 cholecalciferol (vitamin D3) 25 50 mcg PO QAM 10/03/23 09/29/24 11/15/23 10:00 mcg (1,000 unit) tablet (Vitamin D3) citalopram 20 mg tablet 20 mg PO QAM 10/03/23 09/29/24 11/15/23 20:00 coenzyme Q10 10 mg capsule 10 mg PO QAM 10/03/23 09/29/24 11/02/23 diltiazem HCl 180 mg 180 mg PO QAM 10/03/23 09/29/24 11/15/23 20:00 tablet,extended release 24 hr ezetimibe 10 mg tablet 10 mg PO QAM 10/03/23 09/29/24 11/15/23 20:00 glipizide 5 mg tablet 5 mg PO QAM 10/03/23 09/29/24 11/14/23 lorazepam 0.5 mg tablet 0.5 mg PO DAILY PRN Anxiety 10/03/23 09/29/24 Unknown metformin 500 mg tablet 1,000 mg PO BID 10/03/23 09/29/24 11/14/23 omeprazole 20 mg tablet,delayed 20 mg PO QAM 10/03/23 09/29/24 11/15/23 20:00 release pyridoxine (vitamin B6) 100 mg 100 mg PO QAM 10/03/23 09/29/24 11/15/23 20:00 tablet (Vitamin B-6) acetaminophen 500 mg tablet 1,000 mg (2 x 500 mg) PO TID pain 11/14/23 09/29/24 Unknown (Tylenol Extra Strength) 30 days #180 tabs clindamycin HCl 300 mg capsule 600 mg PO ONCE PRN dentist 09/29/24 09/29/24 Unknown diclofenac sodium 50 mg 50 mg PO DAILY 09/29/24 09/29/24 Unknown tablet,delayed release Past Medical History Medical History Acid reflux Anxiety Arthritis History of atrial fibrillation Per review of [facility] records, patient had a. fib episode 2015 > cardioverted to sinus rhythm. Cardio recommended Pradaxa 1 month. Discussion of remaining on AC vs off. CHADS 0. Cardio felt okay to discontinue Pradaxa after one month post cardioversion but recommended adding ASA daily to regimen. No longer follows with cardio/no known a.fib since cardioversion Hypercholesterolemia Sleep apnea CPAP (compliant) Thyroid nodule Under surveillance Type 2 diabetes mellitus Exercise / Class Metabolic Activity II 4-5 Yardwork/Stairs/Walk up hill (one FS: No CP, no SOB) Past Surgical History Surgical History History of cardioversion (2004) HAILY Webber Hx of appendectomy (1980) Hx of colonoscopy Hx of left knee surgery (2008) R/t torn meniscus PONV (postoperative nausea and vomiting) Status post right knee replacement Right TKA (11/16/23): SAB at L3-4 (1 attempt) + regional at [facility] Past Anesthesia History No Hx of Anesthesia Complications and No Family Hx of Anesthesia Complications History of PONV No Hx of Motion Sickness and History of PONV ("Severe") Social History Smoking Status: Never smoker Do You Dip or Chew Tobacco: No Hx Alcohol Use: No Alcohol type: hard liquor Hx Substance Use: No substance use type: does not use Review of Systems Patient denies chest pain, shortness of breath, dyspnea on exertion, fever, chills, cough, wheezing, palpitations. Physical Exam Vital Signs BP 122/74 P 73 TEMP 97.8 SP02 95%RA RESP 16 Physical Full cervical extension range of motion. Full TMJ range of motion. TMD 2.5 finger breaths (small chin) Mallampati Score III Dentition: intact, + several caps/bridge (bridge upper front) Lungs: clear throughout to auscultation Cardiac: regular rate and rhythm, no murmurs noted Spine: normal Carotid arteries: negative bruit Extremities: no LE edema Lab Results Anesthesia Preop Results Results Anesthesia Widget: WBC 5.65 K/ul (4.8-10.8) 10/06/24 Hgb 11.9 g/dl (12.0-16.0) L 10/06/24 Hct 34.6 % (37.0-47.0) L 10/06/24 Plt 389 K/uL (130-400) 10/06/24 Na 141 mmol/L (136-145) 10/06/24 K 4.3 mmol/L (3.5-5.1) 10/06/24 Cl 105 mmol/L (98-107) 10/06/24 CO2 27 mmol/L (21-32) 10/06/24 BUN 11 mg/dl (6-23) 10/06/24 Creat 0.61 mg/dl (0.6-1.2) 10/06/24 Glucose Level 77 mg/dl (70-99(Fasting)) 10/06/24 PT 10.3 Seconds (9.0-12.0) 10/06/24 PTT 26 Seconds (21-31) 10/06/24 INR 0.9 (0.9-1.1) 10/06/24 HA1c 7.1 % (4.5-5.6) H 10/06/24 Blood Type O Positive 10/06/24 Antibody Screen NEGATIVE 10/06/24 Testing Electrocardiogram Date: 10/06/24 NSR at 76bpm. Low voltage QRS. No significant change compared to 10/18/23 per potter or ceramic artist comparison. Chest X-Ray Date: 10/06/24 FINDINGS: Lungs: No evidence of infiltrates, consolidation or mass noted. Diaphragms: No evidence of flattening, elevation or calcification. Pleura: No effusions or pneumothorax identified. Heart: Heart size and its configuration are within normal limits. Aorta: Within normal limits. Pulmonary arteries: Within normal limits. Hilum: Both lin are unremarkable. Osseous structures: unremarkable. Lines and tubes: None. IMPRESSION: No acute pleuropulmonary pathology seen.
[2024-10-22] MEDS: LR 500ML BOLUS, THEN 15ML/HR IV SCH (06:04)
[2024-10-22] MEDS: LR 60ML/HR IV SCH (06:05)
[2024-10-22] MEDS: dexAMETHasone**PF** 10 MG/ML VIAL IV SCH (06:05)
[2024-10-22] MEDS: METOCLOPRAMIDE HCL 10 MG TABLET PO SCH (06:05)
[2024-10-22] MEDS: ACETAMINOPHEN 500 MG TAB PO SCH ×2 (06:05→13:23)
[2024-10-22] MEDS: FAMOTIDINE 20 MG TAB PO SCH (06:05)
[2024-10-22] MEDS: CeleBREX 200 MG CAP PO SCH (06:05)
[2024-10-22] MEDS ORDERED: ROPIVACAINE 0.5% 5 MG/ML 30 ML VIAL ONE (06:32)
[2024-10-22] MEDS ORDERED: BUPIVACAINE 0.5 % 5 MG/1 ML PF 10ML VIAL ONE (06:32)
[2024-10-22] MEDS ORDERED: ONDANSETRON INJ 2 MG/ML 2 ML VIAL IV PRN (06:35)
[2024-10-22] MEDS ORDERED: ATROPINE SULFATE 0.1 MG/ML 10ML SYR IV PRN (06:35)
[2024-10-22] MEDS ORDERED: MIDAZOLAM HCL 1 MG/ML 2ML VIAL ONE (06:41)
[2024-10-22] MEDS ORDERED: LIDOCAINE 2% 2 ML VIAL/AMP(20MG/ML) INFIL ONE (06:41)
[2024-10-22] MEDS ORDERED: ONDANSETRON INJ 2 MG/ML 2 ML VIAL ONE ×2 (06:42→08:38)
[2024-10-22] MEDS ORDERED: PROPOFOL IV EMULSION 10 MG/ML 20 ML VIAL IV ONE (06:42)
--- NOTE | 2024-10-22 06:45 | History & Physical Bridge Note ---
Date of Service October 22, 2024 History & Physical Bridge Note I have examined the patient, reviewed the History & Physical and in the interval since the performance of the History & Physical I have noted the following changes of clinical significance: no changes noted
[2024-10-22] MEDS ORDERED: KETOROLAC 30 MG/ML VIAL ONE (06:49)
[2024-10-22] MEDS ORDERED: KETAMINE HCL 10MG/ML SYR ONE (06:49)
[2024-10-22] MEDS ORDERED: PHENYLEPHRINE 100MCG/ML 5ML SYR ONE (07:26)
[2024-10-22] MEDS: ROPIV 0.5% 246mg, Ketorolac 30mg, EPINEPHrine 0.5mg in NSS INFIL SCH (07:39)
[2024-10-22] MEDS: ORTHO JOINT ANESTHETIC ONE (07:40)
--- NOTE | 2024-10-22 09:23 | Operative Report ---
PG Post Operative Report Pre & Post Diagnosis Operation Date: 10/22/24 07:00 Pre-Op Diagnosis: Left Knee Degenerative Joint Disease Post-Op Diagnosis: Left Knee Degenerative Joint Disease I identified the patient and participated in the time-out.: Yes Procedure Operation Date: 10/22/24 07:00 Actual Procedures p Left Total Knee Arthroplasty(Left) - Kavin Shanks MD Surgeon Kavin Shanks MD Rn Cardiovascular Stoney Kohler PA-C Estimated Blood Loss 50 Findings Consistent with Post-Op Diagnosis Specimens Left knee sent for pathology. Complications none Disposition Accompanied Patient To Recovery: No Indications The patient is a 64-year-old female with a long history of knee pain discomfort described got worse over time. She been through extensive conservative treatments became less successful. She had a right knee replaced about 11 months ago and is done well from this. She continued to be limited by left knee pain discomfort. She elected proceed with left total knee arthroplasty. Description of Procedure Operative implants consist of: 1 Biomet Vanguard size 65 left posterior by femoral component. 2. Biomet size 71 tibial tray. 3. 12 mm PS plus polyethylene insert. 4. 31 x 8 all poly patella. The patient was taken to the op room, identified, placed on the operating table in the supine position. All contact areas were appropriately padded. IV antibiotics arrived by anesthesia team. Spinal anesthetic and adductor canal block had been provided in the holding area. Ackerman catheter was placed in sterile fashion. A left phytate was then placed. The left lower extremity was then prepped and draped in usual sterile fashion. The left leg was elevated exsanguinated with use of an Esmarch and a turn was placed at 300 mmHg. An anterior approach to the left knee was then performed through a longitudinal incision centered over the patella. Sharp dissection was Through subcutaneous tissue down the extensor mechanism. A medial parapatellar arthrotomy incision was made. Some subperiosteal dissection was carried out medially. The fat pad was resected from the patella tendon. The lateral patellofemoral ligament was released. Patella subluxated laterally and the knee was flexed. The osteophytes taken distal femur. The ACL and PCL then released from distal femur and the tibia subluxated anteriorly. The external tibial LYMErix then placed on the anterior face of the tibia and adjusted 14 mm medially. Proximal tibial cut was made remove about a millimeter or 2 of bone from the medial side. Some osteophytes taken medially. The tibia sized to a size 71. Attention drawn the femur. The distal femur was then with a sharp drill. Intramedullary canal was suction. A left 5 degree valgus cutting guide was placed. Distal femoral cutting block was pinned in place. This femoral cut was made to take an additional 3 mm of bone off distal femur. The femur was then sized to a size 65. The AP cutting block was pinned parallel to the epicondylar axis which was 4 degrees of external rotation. The anterior cut, anterior chamfer, posterior cut, posterior chamfer cuts were made. The box cutting guide was placed and adjusted slightly laterally. The box cut was made. The knee was flexed. The remnants of the medial lateral menisci were excised. The osteophytes taken off the posterior aspect of femur. A trial femoral component was placed. The tibial tray was pinned in Yasmin external rotation and the drill and stem punch were used to create defect in the proximal tibia for the tibial tray. Knee was then trialed and the 12 mm insert fit most appropriately. I did elect to use a PS plus insert as there was a little bit more laxity in flexion. Attention drawn the patella. The patella was cleaned of all soft tissue. Patella thickness measured 22 mm in thickness was cut down to about 14. It was sized to a size 31 patella. The lug holes were drilled for 31 patella. The lateral osteophytes removed. Patella button was placed. Knee was taken through range of motion patella tracked nicely with no thumbs test. Attention jointer placed in permanent components. All trial components were removed. Bone plug was placed in the distal femur limit blood loss. A double batch Palacos G cement was mixed. A Biomet Vanguard size 65 left posterior stabilized femoral component, size 71 tibial tray, a 12 mm PS plus insert, and a 31 x 8 all poly patella then cemented in place. The knee was brought out into full extension till cement hardened. A final cement check was then performed. The pericapsular tissues were injected with total of 100 cc of Ortho mix. Patient did receive 1 g tranexamic acid. The tourniquet was then let down for final tourniquet time of 65 minutes. Hemostasis surges electrocautery. Extensor Meclomen then closed with combination 1 PDS suture #1 Vicryl suture in a [id number] fashion. Extensor Meclomen checked found to be intact. Subcutaneous tissue then closed with 2 Dexon suture in a buried interrupted fashion the skin was closed with skin renata. Leg was then cleaned and dried and a sterile dressing with Xeroform, 4 fours, sterile cast padding, Nathan bandage were applied. Patient then transferred to the recovery room in stable condition. Patient tolerated procedure well and there were no complications. Stoney Kohler, my physician publisher assistant, was present for the entire procedure. His assistance was required for proper patient positioning, prepping and draping, surgical exposure, retraction, perform the technical details of the operation, placement of the implants, closure of the incision site, and placement of postoperative sterile bandage. I attest to the content of the Intraoperative Record and any orders documented therein. Any exceptions are noted below.
--- NOTE | 2024-10-22 09:30 | XRay Report ---
XR knee LT 1 or 2V routine CLINICAL HISTORY: Surgical Post Op COMPARISON: None FINDINGS: There is a small vertical lucency at the upper medial femoral condyle just superior to the medial aspect of the femoral component of the knee prosthesis. This could represent artifact or subt le nondisplaced fracture. Otherwise no hardware complication seen. No other fracture or dislocation. Skin renata are present. There is expected postoperative soft tissue gas. IMPRESSION: 1. Artifact versus nondisplaced fracture medial femoral condyle. Artifact is favored. 2. Otherwise unremarkable postoperative exam. ACT 112: Negative or not required by law. Electronically signed by: Atul Rogers M.D. 10/22/2024 9:29 AM
[2024-10-22] MEDS ORDERED: NALOXONE HCL 0.4 MG/1 ML VIAL/CARP IV PRN (11:06)
[2024-10-22] MEDS ORDERED: HYDROmorphone INJ 0.5 MG/0.5 ML SYR IV PRN (11:06)
[2024-10-22] MEDS ORDERED: LORazepam 0.5 MG TAB PO PRN (11:06)
[2024-10-22] MEDS ORDERED: METOCLOPRAMIDE HCL INJ 5 MG/ML 2 ML VIAL IV PRN (11:06)
[2024-10-22] MEDS ORDERED: PHARMACY GLYCEMIC MGMT CONSULT PRN (11:06)
[2024-10-22] MEDS ORDERED: ALUMINUM/MAGNESIUM SUSP 30 ML UDC PO PRN (11:06)
[2024-10-22] MEDS ORDERED: MAGNESIUM HYDROXIDE SUSP 30 ML UDC PO PRN (11:06)
[2024-10-22] MEDS ORDERED: GLUCOSE 40% GEL 15 GM TUBE PO PRN (11:45)
[2024-10-22] MEDS ORDERED: GLUCOSE 10 TAB/TUBE PO PRN (11:45)
[2024-10-22] MEDS ORDERED: GLUCAGON FOR INJ 1 MG VIAL SQ PRN (11:45)
[2024-10-22] MEDS ORDERED: DEXTROSE 50% 50 ML SYRINGE IV PRN (11:45)
[2024-10-22] MEDS ORDERED: CARBOHYDRATES FOR HYPOGLYCEMIA PO PRN (11:45)
[2024-10-22] MEDS: SODIUM CHLORIDE 0.9% 1,000 ML IV SCH (12:10)
--- NOTE | 2024-10-22 13:00 | Pharmacy Report ---
Pharmacy Glycemic Short Note 2 - Date of Service October 22, 2024 - Glycemic Short BSG Results (Last 24 hours): 10/22/24 10/22/24 10/22/24 05:57 09:10 12:13 POC Glucose 133 H 189 H 303 H* 10/22/24 12:15 POC Glucose 313 H* OUTPATIENT ANTIDIABETIC REGIMEN: * metformin 1000 mg PO BID * glipizide 5 mg PO qAM A1c = 7.1% ASSESSMENT: * Bridgette is a T2DM POD #0 s/p L total knee arthroplasty * Patient received dexamethasone 10 mg IV pre-op and is ordered a second dose for 9 AM. * Home oral anti-diabetic medications will be held for admission. I have ordered a one time dose of Lantus 25 units (0.35 units/kg) and will start Novolog based on weight/stress 3 while on high dose IV steroids. * Will add overnight checks for this evening given severe hyperglycemia on arrival to the floor. PLAN FOR INPATIENT GLYCEMIC CONTROL: * Hold outpatient oral diabetes medications * Basal insulin * Lantus 25 units SQ x 1 * Bolus insulin * NovoLog per scale ACHS or Q6hrs while NPO * Goal Range: Low 110 mg/dL - High 140 mg/dL * Correction Factor: 25 mg/dL/unit * Nutritional / Prandial insulin per carb ratio of 1 unit per 8 grams CHO consumed
[2024-10-22] MEDS: INSULIN ASPART PER UNIT CHARGE SC SCH (13:14)
[2024-10-22] MEDS: LANTUS PER UNIT CHARGE SC ONE (13:16)
[2024-10-22] MEDS: KETOROLAC TROMETHAMINE 15 MG/ML VIAL IV SCH (13:16)
[2024-10-22] MEDS ORDERED: ACETAMINOPHEN 500 MG TAB PO SCH (14:00)
--- NOTE | 2024-10-22 15:02 | XRay Report ---
XR knee LT 1 or 2V routine CLINICAL HISTORY: Assess for fracture. Get Obliques if necessary. COMPARISON: X-ray earlier today. FINDINGS: Left knee prosthesis shows no hardware complication. There is expected soft tissue gas. Sk in renata are present anteriorly. The prior lucency at the medial femoral condyle on the prior exam is no longer seen consistent with artifact. No fracture seen. IMPRESSION: No fracture seen. ACT 112: Negative or not required by law. Electronically signed by: Atul Rogers M.D. 10/22/2024 3:01 PM
[2024-10-22] MEDS: TRANEXAMIC ACID / 0.7% NACL 1,000 MG/100 ML BAG IV SCH (15:29)
--- NOTE | 2024-10-22 16:23 | Orthopedic Progress Note ---
Date of Service October 22, 2024 Assessment & Plan (1) Status post left knee replacement: Plan: 64-year-old female postop day 1 from a left knee replacement. She is doing well. She has no pain. There is a small apparent lucency under recovery room films we repeated the films and there is no signs of fracture. This would be extremely unusual. She has no pain. Plan: 1. PT OT. Weight-bear as taught. Left total knee protocol. 2. DVT prophylaxis including thigh-high teds, SCDs, aspirin twice a day. 3. Pain control. Well with current pain regimen. 4. Disposition. Plan is to discharge to home with home health if she does okay in therapy tomorrow (2) Status post right knee replacement: Admission and Anticipated Discharge Date Admission Date: October 22, 2024 Subjective 64-year-old female postop from a right knee replacement. She is doing well. She reports no pain currently. No chest pain or shortness of breath. Not feeling dizzy or lightheaded Physical Exam Physical Exam: Physical examination was a pleasant middle-aged female. She is sitting up in her bed looks comfortable. Examination of her right leg reveals good leg to be well aligned. Dressings clean dry and intact. There is no drainage. She can dorsiflex and plantarflex her foot appropriately. She is neurologically intact. Respiratory: normal respiratory effort, lungs clear to auscultation Cardiovascular: RRR, no murmur, no edema Gastrointestinal (Abdomen): normal bowel sounds, soft, nontender, no hepatosplenomegaly Results & Data Vital Signs (Past 12 Hours) Vital Signs Temp Pulse Pulse Resp BP Pulse Ox O2 Del Method 10/22/24 13:36 36.3 C L 108 H 109/67 93 Room Air 10/22/24 12:34 36.4 C L 105 H 119/67 92 Room Air 10/22/24 11:30 106 H 20 117/64 94 Room Air 10/22/24 11:01 105 H 20 120/66 93 Room Air 10/22/24 10:30 106 H 17 104/66 94 Nasal Cannula 10/22/24 10:15 101 H 16 122/63 95 Nasal Cannula 10/22/24 10:00 36.6 C 95 H 17 108/68 93 Nasal Cannula 10/22/24 09:45 94 H 15 110/62 95 Nasal Cannula 10/22/24 09:35 92 H 20 124/62 94 Oxymask 10/22/24 09:25 92 H 19 121/60 95 Oxymask 10/22/24 09:15 95 H 18 109/52 L 95 Oxymask 10/22/24 09:05 36.1 C L 104 H 22 131/68 94 Oxymask 10/22/24 05:53 36.7 C 77 18 144/78 H 97 Room Air O2 Flow Rate 10/22/24 13:36 10/22/24 12:34 10/22/24 11:30 10/22/24 11:01 10/22/24 10:30 2 10/22/24 10:15 2 10/22/24 10:00 2 10/22/24 09:45 2 10/22/24 09:35 2 10/22/24 09:25 2 10/22/24 09:15 5 10/22/24 09:05 13 10/22/24 05:53 Diagnostic Findings Postop x-rays from the recovery room reviewed. Shows a right knee replacement. There does look to be a small lucency in the medial femoral condyle and a potential crack. No displacement. Not seen on the lateral film. Repeat x-rays on the floor were reviewed. That shows no signs of fracture. This lucency must be in some degree of artifact. She is asymptomatic.
[2024-10-22] MEDS: ASCORBIC ACID 500 MG TAB PO SCH (17:58)
[2024-10-22] MEDS: SENNA 8.6 MG TAB PO SCH ×2 (20:53)
[2024-10-22] MEDS: DOCUSATE SODIUM 100 MG CAP PO SCH (21:04)
[2024-10-22] MEDS: ASPIRIN 81 MG ECTAB PO SCH (21:05)
[2024-10-22] MEDS: ONDANSETRON INJ 2 MG/ML 2 ML VIAL IV PRN (22:01)
[2024-10-23] MEDS: INSULIN ASPART PER UNIT CHARGE SC SCH (00:01)
[2024-10-23 03:37] VITALS: RESP 16
[2024-10-23 06:54] LABS: Hematocrit (blood only) 27.9 % (37.0-47.0); Hemoglobin 9.4 g/dl (12.0-16.0); Mean Corpuscular Hemoglobin 27.2 pg (25.0-34.0); Mean Corpuscular Volume 80.6 fL (80.0-100.0); Platelet Count 355 K/uL (130-400); RDW Standard Deviation 38.5 fL (36.4-46.3); Red Blood Count 3.46 M/uL (4.20-5.40); White Blood Count 13.70 K/ul (4.8-10.8)
[2024-10-23 07:23] LABS: Anion Gap 10.0 (3-11); Blood Urea Nitrogen 17.0 mg/dl (6-23); Calcium 8.4 mg/dl (8.6-10.3); Carbon Dioxide 23.0 mmol/L (21-32); Chloride 107.0 mmol/L (98-107); Creatinine Clr Calc Pharmacy 70.1 ml/min; Glucose 125.0 mg/dl (70-99(Fasting)); Potassium 3.7 mmol/L (3.5-5.1); Sodium 140.0 mmol/L (136-145)
[2024-10-23 08:16] VITALS: BP 125/78; PULSE 113; TEMP 97.7; O2SAT 95
--- NOTE | 2024-10-23 08:35 | Orthopedic Progress Note ---
Date of Service October 23, 2024 Assessment & Plan (1) Status post left knee replacement: * Continue Current Treatment * Disposition: home, PT * Daily treatment: Physical Therapy/ Occupational Therapy per protocol * Weight bearing status: WBAT * Continue to monitor for ABLA * Pain control * DVT prophylaxis, ASA * Office/hospital f/u 2 weeks for progress check and staple/suture removal * Plan for discharge today pending PT/OT clearance Subjective . Active Problems: S/p left TKA POD 1 64 y/o female s/p left TKA. Doing well overall, pain managed and improved function. Denies fever/chills, chest pain/SOB, nausea/vomiting. Otherwise no complaints. Review of Systems All systems reviewed & are unremarkable except as noted in HPI & below. Physical Exam . * General: Alert and oriented, no acute distress * Constitutional: well-developed, well-nourished. * Respiratory: Normal respiratory effort, no distress * Gastrointestinal: No tenderness to palpation, no rigidity or guarding. * Skin: No rash or lesion. * Neurologic: Grossly normal * Musculoskeletal: Left knee surgical dressing CDI, not removed for exam. Otherwise no obvious deformity or overlying skin changes RLE. Diffuse TTP distal thigh and knee region. Otherwise no specific tenderness of proximal thigh, lower leg, foot/ankle. AROM knee flexion 90 degrees. AROM foot/ankle intact. Sensation intact plantar/dorsal foot. Brisk capillary refill. Results & Data Results & Data Laboratory Results . Diagnostic Findings . Knee X-Ray 10/22/24 09:16 XR knee LT 1 or 2V routine CLINICAL HISTORY: Surgical Post Op COMPARISON: None FINDINGS: There is a small vertical lucency at the upper medial femoral condyle just superior to the medial aspect of the femoral component of the knee prosthesis. This could represent artifact or subtle nondisplaced fracture. Otherwise no hardware complication seen. No other fracture or dislocation. Skin renata are present. There is expected postoperative soft tissue gas. IMPRESSION: 1. Artifact versus nondisplaced fracture medial femoral condyle. Artifact is favored. 2. Otherwise unremarkable postoperative exam. ACT 112: Negative or not required by law. Electronically signed by: Atul Rogers M.D. 10/22/2024 9:29 AM Knee X-Ray 10/22/24 14:26 XR knee LT 1 or 2V routine CLINICAL HISTORY: Assess for fracture. Get Obliques if necessary. COMPARISON: X-ray earlier today. FINDINGS: Left knee prosthesis shows no hardware complication. There is expected soft tissue gas. Skin renata are present anteriorly. The prior lucency at the medial femoral condyle on the prior exam is no longer seen consistent with artifact. No fracture seen. IMPRESSION: No fracture seen. ACT 112: Negative or not required by law. Electronically signed by: Atul Rogers M.D. 10/22/2024 3:01 PM PG Care Time/CCT Total # of Minutes Spent Total Time Spent with Patient: Total time spent is greater than 50% in coordination of care (as documented) at patient's floor/unit and/or counseling patient: Coding Level of Care Code 92670 Post Operative Follow-Up Diagnoses Status post left knee replacement Z96.652
[2024-10-23] MEDS ORDERED: NON-FORMULARY MEDICATION (Coenzyme Q10 10 mg Capsule) PO SCH (09:00)
[2024-10-23] MEDS ORDERED: glipiZIDE 5 MG TAB PO SCH (09:00)
[2024-10-23] MEDS ORDERED: NON-FORMULARY MEDICATION (Calcium 500 mg Tablet) PO SCH (09:00)
[2024-10-23] MEDS: CHOLECALCIFEROL 25 MCG (1000 UNITS) TAB PO SCH (09:02)
[2024-10-23] MEDS: PYRIDOXINE HCL 50 MG TAB PO SCH (09:03)
[2024-10-23] MEDS: MULTIVITAMIN TAB PO SCH (09:03)
[2024-10-23] MEDS: CALCIUM CARBONATE 1250MG TAB PO SCH (09:04)
[2024-10-23] MEDS: CITALOPRAM 20 MG TAB PO SCH (09:04)
[2024-10-23] MEDS: ATORVASTATIN 40 MG TAB PO SCH (09:04)
[2024-10-23] MEDS: EZETIMIBE 10 MG TAB PO SCH (09:05)
[2024-10-23] MEDS: dexAMETHasone 10 MG in SYRINGE 0 ML IV SCH (09:06)
[2024-10-23] MEDS: LANTUS PER UNIT CHARGE SC ONE (09:20)
--- NOTE | 2024-10-24 15:42 | Discharge Summary ---
Date of Service October [id number] Principal Diagnosis Same as "Discharge Diagnosis" noted below under Discharge Instructions. Discharge Exam . * General: Alert and oriented, no acute distress * Constitutional: well-developed, well-nourished. * Respiratory: Normal respiratory effort, no distress * Gastrointestinal: No tenderness to palpation, no rigidity or guarding. * Skin: No rash or lesion. * Neurologic: Grossly normal * Musculoskeletal: Left knee surgical dressing CDI, not removed for exam. Otherwise no obvious deformity or overlying skin changes RLE. Diffuse TTP distal thigh and knee region. Otherwise no specific tenderness of proximal thigh, lower leg, foot/ankle. AROM knee flexion 90 degrees. AROM foot/ankle intact. Sensation intact plantar/dorsal foot. Brisk capillary refill. Discharge Data Procedures Performed Operation Date: 10/22/24 07:00 Actual Procedures p Left Total Knee Arthroplasty(Left) - Kavin Shanks MD Ordered Studies 10/22/24 05:00 US - OR guided needle placemen Routine PG Care Time/CCT Total # of Minutes Spent Total Time Spent with Patient: Total time spent is greater than 50% in coordination of care (as documented) at patient's floor/unit and/or counseling patient: Discharge Plan Discharge Items Patient Disposition: Home - Home Health Services Reason For Visit: Osteoarthritis Left Knee Discharge Diagnosis: Left Knee Replacement Activity: Per Instructions section Weightbearing: Full weightbearing Non-emergency contact: Surgeon Call non-emergency contact if: you have any medication questions Follow-up/Referrals: Sarita Middleton MD [Primary Care Provider] - Diet: Carb Consistent or DM2 Addtl Attending Provider Instructions: ACTIVITY RECOMMENDATIONS: Diet: * You may resume previous diet. Physical Therapy: * You will go to physical therapy three times each week for four to six weeks after your surgery in order to regain your knee range of motion and to retrain your knee to work properly. * It is just as important to make sure you are getting your knee perfectly straight as it is to regain your knee bend. * Taking a pain pill an hour before therapy can help you have a more productive and comfortable therapy session. Home Exercise: * You were shown a series of exercises (heel props, heel slides, etc.) in the hospital. Do these exercises three to four times each day including the exercises you were shown in physical therapy. Walking: * Get up and walk several times each day. For the first four weeks, try not to stand or walk for more than one hour at a time. If you do stand or walk for more than one hour, you will not hurt anything, but your knee and leg will likely swell. * As you feel comfortable, you may change from the walker or crutches to a cane and then to independent walking. MEDICATIONS: New Medicine: * You will likely be taking one or more of these medications: 1. Oxycodone - A quick and shorter-acting pain medication. Take one to two tablets every six hours to lessen your pain. 2. Aspirin - Thins your blood to lessen the chance of forming a blood clot. * The most common side effects of pain medicine and iron are nausea and con stipation. If nausea or constipation is too much of a problem or if you have any questions about your new medicines or doses, call [facility] at . We will try to help you manage these issues. "VERY IMPORTANT TO READ AND REVIEW" Pain: * The immediate post-operative period after knee replacement surgery is often quite painful. * You are given a prescription for pain medicine. You should take it, as directed, when you need it, especially before physical therapy and before going to bed. Pain that interferes with sleep is very common and can last several months. * You will likely need pain medicine for the first four to six weeks. It will not stop all of the pain. The pain will lessen and as you feel better, you may change to milder pain medicine such as Tylenol. * The most common side effects of pain medicine are nausea and constipation, so don't take more than you need. SPECIAL CARE INSTRUCTIONS: TEDs/Elastic Stockings: * The white elastic stockings help limit swelling and prevent blood clots from forming in your legs. The more you wear them, the more they work. * Wear them for six weeks after knee replacement surgery and four weeks after partial knee replacement. Incision Site Care: * Remove dressing postoperative day 2 and then shower. Keep direct shower pressure off the incision site. * After showering, cover renata with dry gauze and change daily or more frequently if the dressing is getting saturated with drainage. * Use the JENSEN stockings to hold dressing in place. DO NOT apply tape on the skin. * May completely stop using bandage if wound is dry and no drainage * [place] are removed between 2 and 3 weeks post-op. If your follow-up appointment is made before 2 weeks, please have your appointment re- scheduled. It is too early to remove the renata. Prevention of Infection: * Take antibiotics one hour before any dental cleaning, dental work, urological procedure, gastrointestinal procedure or any invasive surgery in order to prevent your new joint from getting infected. * You may get the antibiotics from the doctor performing the procedure or you may call our office at [phone] before and we will call in a prescription to the pharmacy of your choice. Things to Watch For: * Drainage from the incision site that occurs more than one week after your surgery. * Severely increased knee/leg pain or swelling. * Increased redness at the incision site. * Fever above 102 degrees Fahrenheit. * Unusual chest pain or shortness of breath. * Unusual pain or burning with urination. Call [facility] at [phone] with any of the above problems or if you have any questions about your medicines or recovery. FOLLOW UP VISIT: Make an appointment to see your doctor for approximately two weeks after surgery for a progress check and staple removal by calling the office at [phone]. Pending Studies at Discharge: No Stand-Alone Forms: My [facility], Pain - Opioid Pain Management, Smoking Cessation Medications and DC Order Prescriptions: Continued (DME) walker [facility] See Rx Instructions .MEDSUPPLY Qty: 1 0RF Rx Instructions: As directed oxycodone 5 mg tablet 5 - 10 mg PO Q6 PRN (Reason: pain) Qty: 40 0RF Rx Instructions: Take as needed for pain ondansetron 4 mg tablet,disintegrating 4 mg PO Q8 PRN (Reason: nausea) Qty: 20 1RF Rx Instructions: Take as needed for nausea sennosides [Senokot] 8.6 mg tablet 8.6 mg PO BID 14 Days Qty: 28 0RF Rx Instructions: Take two times a day to prevent/treat constipation acetaminophen [Tylenol Extra Strength] 500 mg tablet 1,000 mg PO TID 30 Days Qty: 180 0RF Rx Instructions: Take 3 times per day to lessen pain. aspirin [Kyrie Low Dose Aspirin] 81 mg tablet,delayed release (DR/EC) 81 mg PO BID 45 Days Qty: 90 0RF Rx Instructions: Take to prevent blood clots. cefadroxil 500 mg capsule 500 mg PO BID 7 Days Qty: 14 0RF Rx Instructions: Take 1 cap twice a day to prevent infection diclofenac sodium 50 mg Tablet,Delayed Release (Dr/Ec) 50 mg PO DAILY clindamycin HCl 300 mg capsule 600 mg PO ONCE PRN (Reason: dentist) Rx Instructions: 2 caps 1 hour prior to dental appointment atorvastatin 40 mg Tablet 40 mg PO QAM metformin 500 mg Tablet 1,000 mg PO BID alendronate [Fosamax] 70 mg Tablet 70 mg PO WK Rx Instructions: Sunday calcium 500 mg Tablet 500 mg PO QAM coenzyme Q10 10 mg Capsule 10 mg PO QAM citalopram [Celexa] 20 mg Tablet 20 mg PO QAM lorazepam 0.5 mg Tablet 0.5 mg PO DAILY PRN (Reason: Anxiety) pyridoxine (vitamin B6) [Vitamin B-6] 100 mg Tablet 100 mg PO QAM glipizide 5 mg Tablet 5 mg PO QAM ezetimibe [Zetia] 10 mg Tablet 10 mg PO QAM diltiazem HCl 180 mg Tablet Extended Release 24 Hr 180 mg PO QAM cholecalciferol (vitamin D3) [Vitamin D3] 25 mcg (1,000 unit) Tablet 50 mcg PO QAM omeprazole 20 mg Tablet,Delayed Release (Dr/Ec) 20 mg PO QAM aspirin 81 mg Capsule 81 mg PO QAM Krames/Other Patient Handouts: DVT Post Op Prevention, Tips After Knee Surgery, Knee Replacement Total Dc Admission Data Admit Date/Time: 10/22/24 09:16 Attending Provider: Kavin Shanks Admit Provider: Kavin Shanks Primary Care Provider: Sarita Middleton Other Providers: [facility],Home Health Other Interventions: Discharge Summary Assessment (RN) Last Done: 10/23/24 11:13
--- NOTE | 2024-10-24 15:52 | Discharge Summary ---
Date of Service October [id number] Admission HPI (Per Admitting) The patient is a 64-year-old female with a long history of knee pain discomfort described got worse over time. She been through extensive conservative treatments became less successful. She had a right knee replaced about 11 months ago and is done well from this. She continued to be limited by left knee pain discomfort. She elected proceed with left total knee arthroplasty. Principal Diagnosis Same as "Discharge Diagnosis" noted below under Discharge Instructions. Discharge Exam * General: Alert and oriented, no acute distress * Constitutional: well-developed, well-nourished. * Respiratory: Normal respiratory effort, no distress * Gastrointestinal: No tenderness to palpation, no rigidity or guarding. * Skin: No rash or lesion. * Neurologic: Grossly normal * Musculoskeletal: Left knee surgical dressing CDI, not removed for exam. Otherwise no obvious deformity or overlying skin changes RLE. Diffuse TTP distal thigh and knee region. Otherwise no specific tenderness of proximal thigh, lower leg, foot/ankle. AROM knee flexion 90 degrees. AROM foot/ankle intact. Sensation intact plantar/dorsal foot. Brisk capillary refill. Discharge Data Procedures Performed Operation Date: 10/22/24 07:00 Actual Procedures p Left Total Knee Arthroplasty(Left) - Kavin Shanks MD Ordered Studies 10/22/24 05:00 US - OR guided needle placemen Routine Hospital Course (1) Status post left knee replacement: Plan Patient came to [facility] for preop on October 22, 2024. She underwent a left total knee arthroplasty performed by Dr. Kavin Shanks later that morning. After which she went to the PACU and then on the floor for observation overnight. Patient was assessed in the morning of October 23, 2024 and it was determined that she met discharge criteria. Patient was discharged home to self-care. She was given the discharge instructions listed below. PG Care Time/CCT Total # of Minutes Spent Total Time Spent with Patient: Total time spent is greater than 50% in coordination of care (as documented) at patient's floor/unit and/or counseling patient: Discharge Plan Discharge Items Patient Disposition: Home - Home Health Services Reason For Visit: Osteoarthritis Left Knee Discharge Diagnosis: Left Knee Replacement Activity: Per Instructions section Weightbearing: Full weightbearing Non-emergency contact: Surgeon Call non-emergency contact if: you have any medication questions Follow-up/Referrals: Middleton,Sarita A, MD [Primary Care Provider] - Diet: Carb Consistent or DM2 Addtl Attending Provider Instructions: ACTIVITY RECOMMENDATIONS: Diet: * You may resume previous diet. Physical Therapy: * You will go to physical therapy three times each week for four to six weeks after your surgery in order to regain your knee range of motion and to retrain your knee to work properly. * It is just as important to make sure you are getting your knee perfectly straight as it is to regain your knee bend. * Taking a pain pill an hour before therapy can help you have a more productive and comfortable therapy session. Home Exercise: * You were shown a series of exercises (heel props, heel slides, etc.) in the hospital. Do these exercises three to four times each day including the exercises you were shown in physical therapy. Walking: * Get up and walk several times each day. For the first four weeks, try not to stand or walk for more than one hour at a time. If you do stand or walk for more than one hour, you will not hurt anything, but your knee and leg will likely swell. * As you feel comfortable, you may change from the walker or crutches to a cane and then to independent walking. MEDICATIONS: New Medicine: * You will likely be taking one or more of these medications: 1. Oxycodone - A quick and shorter-acting pain medication. Take one to two tablets every six hours to lessen your pain. 2. Aspirin - Thins your blood to lessen the chance of forming a blood clot. * The most common side effects of pain medicine and iron are nausea and constipation. If nausea or constipation is too much of a problem or if you have any questions about your new medicines or doses, call [facility] at . We will try to help you manage these issues. "VERY IMPORTANT TO READ AND REVIEW" Pain: * The immediate post-operative period after knee replacement surgery is often quite painful. * You are given a prescription for pain medicine. You should take it, as directed, when you need it, especially before physical therapy and before going to bed. Pain that interferes with sleep is very common and can last several months. * You will likely need pain medicine for the first four to six weeks. It will not stop all of the pain. The pain will lessen and as you feel better, you may change to milder pain medicine such as Tylenol. * The most common side effects of pain medicine are nausea and constipation, so don't take more than you need. SPECIAL CARE INSTRUCTIONS: TEDs/Elastic Stockings: * The white elastic stockings help limit swelling and prevent blood clots from forming in your legs. The more you wear them, the more they work. * Wear them for six weeks after knee replacement surgery and four weeks after partial knee replacement. Incision Site Care: * Remove dressing postoperative day 2 and then shower. Keep direct shower pressure off the incision site. * After showering, cover renata with dry gauze and change daily or more frequently if the dressing is getting saturated with drainage. * Use the JENSEN stockings to hold dressing in place. DO NOT apply tape on the skin. * May completely stop using bandage if wound is dry and no drainage * [place] are removed between 2 and 3 weeks post-op. If your follow-up appointment is made before 2 weeks, please have your appointment re- scheduled. It is too early to remove the renata. Prevention of Infection: * Take antibiotics one hour before any dental cleaning, dental work, urological procedure, gastrointestinal procedure or any invasive surgery in order to prevent your new joint from getting infected. * You may get the antibiotics from the doctor performing the procedure or you may call our office at [phone] before and we will call in a prescription to the pharmacy of your choice. Things to Watch For: * Drainage from the incision site that occurs more than one week after your surgery. * Severely increased knee/leg pain or swelling. * Increased redness at the incision site. * Fever above 102 degrees Fahrenheit. * Unusual chest pain or shortness of breath. * Unusual pain or burning with urination. Call [facility] at [phone] with any of the above problems or if you have any questions about your medicines or recovery. FOLLOW UP VISIT: Make an appointment to see your doctor for approximately two weeks after surgery for a progress check and staple removal by calling the office at [phone]. Pending Studies at Discharge: No Stand-Alone Forms: My [facility], Pain - Opioid Pain Management, Smoking Cessation Medications and DC Order Prescriptions: Continued (DME) walker Misc See Rx Instructions .MEDSUPPLY Qty: 1 0RF Rx Instructions: As directed oxycodone 5 mg tablet 5 - 10 mg PO Q6 PRN (Reason: pain) Qty: 40 0RF Rx Instructions: Take as needed for pain ondansetron 4 mg tablet,disintegrating 4 mg PO Q8 PRN (Reason: nausea) Qty: 20 1RF Rx Instructions: Take as needed for nausea sennosides [Senokot] 8.6 mg tablet 8.6 mg PO BID 14 Days Qty: 28 0RF Rx Instructions: Take two times a day to prevent/treat constipation acetaminophen [Tylenol Extra Strength] 500 mg tablet 1,000 mg PO TID 30 Days Qty: 180 0RF Rx Instructions: Take 3 times per day to lessen pain. aspirin [Kyrie Low Dose Aspirin] 81 mg tablet,delayed release (DR/EC) 81 mg PO BID 45 Days Qty: 90 0RF Rx Instructions: Take to prevent blood clots. cefadroxil 500 mg capsule 500 mg PO BID 7 Days Qty: 14 0RF Rx Instructions: Take 1 cap twice a day to prevent infection diclofenac sodium 50 mg Tablet,Delayed Release (Dr/Ec) 50 mg PO DAILY clindamycin HCl 300 mg capsule 600 mg PO ONCE PRN (Reason: dentist) Rx Instructions: 2 caps 1 hour prior to dental appointment atorvastatin 40 mg Tablet 40 mg PO QAM metformin 500 mg Tablet 1,000 mg PO BID alendronate [Fosamax] 70 mg Tablet 70 mg PO WK Rx Instructions: Sunday calcium 500 mg Tablet 500 mg PO QAM coenzyme Q10 10 mg Capsule 10 mg PO QAM citalopram [Celexa] 20 mg Tablet 20 mg PO QAM lorazepam 0.5 mg Tablet 0.5 mg PO DAILY PRN (Reason: Anxiety) pyridoxine (vitamin B6) [Vitamin B-6] 100 mg Tablet 100 mg PO QAM glipizide 5 mg Tablet 5 mg PO QAM ezetimibe [Zetia] 10 mg Tablet 10 mg PO QAM diltiazem HCl 180 mg Tablet Extended Release 24 Hr 180 mg PO QAM cholecalciferol (vitamin D3) [Vitamin D3] 25 mcg (1,000 unit) Tablet 50 mcg PO QAM omeprazole 20 mg Tablet,Delayed Release (Dr/Ec) 20 mg PO QAM aspirin 81 mg Capsule 81 mg PO QAM Alex/Other Patient Handouts: DVT Post Op Prevention, Tips After Knee Surgery, Knee Replacement Total Dc Admission Data Admit Date/Time: 10/22/24 09:16 Attending Provider: Kavin Shanks Admit Provider: Kavin Shanks Primary Care Provider: Sarita Middleton Other Providers: Priscila,Home Health Other Interventions: Discharge Summary Assessment (RN) Last Done: 10/23/24 11:13
== END 2024-10-23 12:35 | disposition home health service (06) ==
LOC: PACUINP 05:29 → ASU 05:29 → 3E 11:59